=== PATIENT | male | born 1990 | race Caucasian/White ===

== ENCOUNTER 2022-10-09 07:10 | Inpatient (IN) | payer OTHER ==
[~2022-10-09] VITALS: Ht 172.7 cm; Wt 104.5 kg
[~2022-10-09 07:10] MED LIST: ATIVAN1 MG PO; LISINOPRIL10 MG PO; ONDANSETRON ODT8 MG PO
[2022-10-09] MEDS ORDERED: ATIVAN1 MG PO (08:46)
[2022-10-09] MEDS ORDERED: PRILOSEC OTC20 MG PO (08:49)
[2022-10-09] MEDS ORDERED: ONDANSETRON ODT4 MG PO (08:49)
--- NOTE | 2022-10-09 15:34 | NUR ---
PT ADMITTED TO ROOM 129 AT 1500. PT WAS ABLE TO TRANSFER SELF TO CCU BED WITH MINIMAL ASSISTANCE. PT STARTED ON LR AT 125ML/HR. ADMISSION ASSESSMENT COMPLETED BY RN. PT IS ALERT AND ORIENTED TO TIME AND PLACE. PT IS ABLE TO HOLD CONVERSATION AT THIS TIME. PT RECIEVED ONE SIP OF WATER AND TOLERATED IT OKAY, NO COMPLAINT OF NAUSEA. PT HAS SLIGHT TREMORS, A MILD HEADACHE AND MINIMAL NAUSEA COMPLAINTS. PTS CIWA WAS 9 UPON CCU ADMISSION. PT IS RESTING IN BED WITH A URINAL NEAR THE BEDSIDE, CALL LIGHT IS WITHIN REACH AND PT HAS PERSONAL CELL PHONE ON PERSON. WILL CONTINUE TO MONITOR CLOSELY.
--- NOTE | 2022-10-09 17:25 | NUR ---
Spoke with Vladislav. He states he's been "drinking alot and fell off the wagon". He moved pt [place] recently. 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 He lives in [place] with 2 steps and does not have any issues getting in or out of his home. He does not use any DME. He has concerns about bills as he has not been working. He has used [facility] in the past and is willing to work with them again. I will call in the AM and ask for Peer visit. Pt does not have a pcp, he does not care which clinic he uses, would just like an appoint in the near future. I will send his chart in the am the [facility] as they currently have openings. He would like his mom added as an emergency contact Bruna Ch [phone].
--- NOTE | 2022-10-09 17:58 | NUR ---
PHONE CALL PLACED TO DR. AKERS REGARDING NPO STATUS AND DIET HAS BEEN ADVANCED TO CLEAR LIQUIDS FOR NOW,BUT MAY ADVANCE FURTHER TOLERATED BY PATIENT. IVF CONTINUE AT 125 ML/HR. NEW IV PLACED IN LEFT HAND.
--- NOTE | 2022-10-09 18:48 | NUR ---
PATIENT CONTINUES TO REST. CIWA WAS 3 AT THE LAST CHECK. NEXT CIWA IS AT 2030. HR IN THE 110s. PT REMAINS ON IVF AT 125 ML/HR. PT ALSO ON ROOM AIR. PT WAS ABLE TO VOID TO URINAL WITHOUT DIFFICULTY, DREAD COLORED URINE.
--- NOTE | 2022-10-09 20:00 | NUR ---
Bedside report received from outgoing nurse, TETO Mann. Initial assessment performed with no critical interventions necessary. All vital signs stable with no indications of respiratory distress or pain. Patient awake and alert with no indications of hallucinations or terrible tremors. Lactated ringers infusing via PIV at 125 ml/hr. Will continue to monitor.
--- NOTE | 2022-10-09 21:12 | EKG ---
[facility] [address] [facility] [place] [address] Signed Sinus tachycardia Nonspecific T wave abnormality Abnormal ECG No previous ECGs available Confirmed by Sammie Akers MD () on 10/09/2022 9:12:34 PM Electronically Signed By: SAMMIE AKERS MD 10/09/222111 PATIENT NAME: MAGO ELIAS Electrocardiogram DATE OF : 88 PHYSICIAN: SAMMIE AKERS MD REPORT #: [id number] REPORT IS CONFIDENTIAL AND NOT TO BE RELEASED WITHOUT AUTHORIZATION
--- NOTE | 2022-10-09 22:10 | NUR ---
Ativan administered for complaints of tremors and anxiety. All vital signs stable. Will reassess.
--- NOTE | 2022-10-10 | NUR ---
Repeat assessment performed with no acute changes since previous assessment unless noted. All vital signs stable with no further complaints of tremors. No indications of respiratory distress, fever or pain. Will continue to monitor.
--- NOTE | 2022-10-10 02:00 | NUR ---
Patient resting comfortably with no indications of distress. All vital signs stable. Will continue to monitor.
--- NOTE | 2022-10-10 04:00 | NUR ---
Repeat assessment performed with no acute changes since previous assessment unless noted. All vital signs stable with no complaints or indications of respiratory distress, increased fever or pain. Patient oriented, has slight tremors and denies hallucinations. IV fluids infusing at 125 ml/hr.
--- NOTE | 2022-10-10 06:00 | NUR ---
Patient sleeping with no indications of distress. All vital signs stable.
--- NOTE | 2022-10-10 08:00 | NUR ---
Chart faxed to [facility] at the [facility] as this is the only clinic accepting pts at this time. Discussed PFM, [facility], and Physician clinic with pt. He does not want to wait until summer to establish care.
--- NOTE | 2022-10-10 08:00 | NUR ---
ASSESSMENT COMPLETED. CIWA SCORE OF 10 AT THIS TIME. PT GIVEN ORAL VALIUM (SEE EMAR). PT DENIES AUDITORY OR VISUAL HALLUCINATIONS AT THIS TIME. PT DOES NOT MAKE DIRECT EYE CONTACT WHEN RESPONDING TO QUESTIONS BUT ANSWERS ALL QUESTIONS APPROPRIATELY. HEART RATE IN THE 100-110 AT REST, UP TO 120S WITH ACTIVITY. PLAN OF CARE FOR DAY ESTABLISHED. CALL LIGHT WITHIN REACH. WILL CONTINUE TO MONITOR.
--- NOTE | 2022-10-10 08:36 | NUR ---
DR AKERS IN ROOM TO ASSESS PT. PT ASKING QUESTIONS ABOUT DISCHARGE. PLAN ESTABLISHED FOR THE DAY. DISCUSSED COURSE TREATMENT FOR ALCOHOL WITHDRAWAL, HEART RATE, AND MEDICATION ADMINISTRATION. PT VERBALIZED UNDERSTANDING OF PLAN OF CARE. CALL LIGHT WITHIN REACH. WILL CONTINUE TO MONITOR.
--- NOTE | 2022-10-10 09:00 | NUR ---
PATIENT UP TO BR, FOR VOID AND SMALL LOOSE BM, DENIES DIZZINESS OR NAUSEA. VITALS AND I&OS CHARTED. LINEN CHANGED, CLEAN GOWN PROVIDED, PATIENT DENIES WANTING A BEDBATH AT THIS TIME. PATIENT SITTING UP IN RECLINER, WARM BLANKET PROVIDED. PERSONAL ITEMS AND CALL LIGHT IN EASY REACH
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
--- NOTE | 2022-10-10 09:43 | NUR ---
[facility] WORKER IN ROOM TO TALK WITH PT AT THIS TIME.
--- NOTE | 2022-10-10 10:45 | NUR ---
Attempted to see pt x 2, sleeping. Per rn they are medicating. Will see tomorrow. They did state [facility] visited him today.
--- NOTE | 2022-10-10 12:11 | NUR ---
ASSESSMENT COMPLETED. PT HEART RATE IN THE 130S AT REST AND PT IS HYPERTENSIVE. 5 MG IV LOPRESSOR ADMINISTERED. LEFT AC IV REDRESSED. MILD LEAKING NOTED WITH FLUSHING. WILL CLOSELY MONITOR. 5 MG ORAL DIAZAPAM ADMINISTERED FOR CIWA OF 12. IV POTASSIUM PHOSPHORUS AND BANNANA BAG INFUSING. CALL LIGHT WITHIN REACH. WILL CONTINUE TO MONITOR.
--- NOTE | 2022-10-10 12:39 | EKG ---
[facility] [address] [place] [address] Signed Sinus tachycardia Otherwise normal ECG When compared with ECG of 09-OCT-2022 13:38, ST elevation now present in Anterior leads Nonspecific T wave abnormality has replaced inverted T waves in Lateral leads Confirmed by Sammie Akers MD () on 10/10/2022 12:39:23 PM Electronically Signed By: SAMMIE AKERS MD 10/10/22 1239 PATIENT NAME: MAGO ELIAS Electrocardiogram DATE OF : [birth year] PHYSICIAN: SAMMIE AKERS MD REPORT #: [id number] REPORT IS CONFIDENTIAL AND NOT TO BE RELEASED WITHOUT AUTHORIZATION
--- NOTE | 2022-10-10 13:30 | NUR ---
PT RESTING WITH EYES CLOSED. BREATHING EVEN AND UNLABORED. IV MEDICATIONS INFUSING. CALL LIGHT WITHIN REACH. WILL CONTINUE TO MONITOR.
--- NOTE | 2022-10-10 15:07 | NUR ---
PT DIAPHORETIC. ORAL TEMP NOW 98.4. GOWN CHANGED AND ASSISTED TO AND FROM BATHROOM. PT RESTING IN BED. HEART RATE IN THE 80S. BREATHING EVEN AND UNLABORED. CALL LIGHT WITHIN REACH. WILL CONTINUE TO MONITOR.
--- NOTE | 2022-10-10 16:15 | NUR ---
ASSESSMENT COMPLETED. PT HEART RATE IN THE 70S -80S AT REST. SPO2 = 96% ON ROOM AIR. CIWA LESS THAN 8 AT THIS TIME. PT STATES "I FEEL MUCH BETTER THAN THIS MORNING". PLAN OF CARE FOR EVENING ESTABLISHED. CALL LIGHT WITHIN REACH. WILL CONTINUE TO MONITOR.
--- NOTE | 2022-10-10 18:30 | NUR ---
PT ATE 30% OF DINNER AND FELL BACK ASLEEP. DENIES FURTHER NEEDS AT THIS TIME.
--- NOTE | 2022-10-10 20:00 | NUR ---
Bedside report received from outgoing nurse, TETO Lutz. Initial assessment performed with no critical interventions necessary. Lactacted ringers infusing via PIV at 125 ml/hr. Patient alert and oriented with no signs or complaints of visible tremors. All vital signs stable with no indications of respiratory distress, fever or pain. Will continue to monitor.
--- NOTE | 2022-10-10 22:00 | NUR ---
Patient sitting up in bed watching television with no complaints of pain or tremors. All vital signs stable. Comfort measures performed.
--- NOTE | 2022-10-11 00:15 | NUR ---
Repeat assessment performed with no acute change since previous assessment unless noted. All vital signs stable with no complaints or indications of respiratory distress, fever or pain. Patient does not display any signs of tremors or anxiety. Will continue to monitor.
--- NOTE | 2022-10-11 02:07 | NUR ---
Patient resting comfortably after administration of Valium 5mg PO for complaints of anxiety. All vital signs stable.
--- NOTE | 2022-10-11 04:00 | NUR ---
Repeat assessment performed with no acute changes since previous assessment unless noted. All vital signs stable with no complaints of respiratory distress, fever or pain. Patient states taht he feels better since receiving the valium. Comfort measures provided. Will continue to monitor.
--- NOTE | 2022-10-11 06:17 | NUR ---
Patient resting comfortably with no complaints of anxiety. Left hand IV dressing changed and IV flushes appropriately. Visible tremors noted but patient refused medication. All vital signs stable. Comfort measures provided.
--- NOTE | 2022-10-11 07:18 | EKG ---
[facility] [address] [facility] [place], [place] [address] Signed Normal sinus rhythm Normal ECG When compared with ECG of 09-OCT-2022 22:51, No significant change was found Confirmed by RESHMA METZGER MD ([id number]) on 10/11/2022 7:18:35 AM Electronically Signed By: RESHMA METZGER MD 10/11/22 0718 PATIENT NAME: MAGO ELIAS Electrocardiogram DATE OF : [birth year] PHYSICIAN: RESHMA METZGER MD REPORT #: [id number] REPORT IS CONFIDENTIAL AND NOT TO BE RELEASED WITHOUT AUTHORIZATION
--- NOTE | 2022-10-11 07:30 | NUR ---
REPORT RECEIVED, CARE OF PT ASSUMED AT THIS TIME.
--- NOTE | 2022-10-11 08:00 | NUR ---
ASSESSMENT COMPLETED. PT ALERT AND ORIENTED, ANSWERING ALL QUESTIOSN APPROPRAITELY. DENIES PAIN, NAUSEA, OR ANY OTHER DISCOMFORT. CIWA SCORE OF 4. PT DENIES FEELING WITHDRAWAL SYMPTOMS AND STATES HE IS "READY TO GO HOME". PLAN FOR MORNING ESTABLISHED. PT NOW EATING BREAKFAST. CALL LIGHT WITHIN REACH. WILL CONTINUE TO MONITOR.
[2022-10-11] MEDS ORDERED: LISINOPRIL10 MG PO (08:38)
[2022-10-11] MEDS ORDERED: GABAPENTIN300 MG PO (08:45)
--- NOTE | 2022-10-11 08:45 | NUR ---
DR METZGER IN ROOM TO ASSESS PT. PLAN ESTABLISHED FOR PT TO DISCHARGE THIS MORNING. ALL QUESTIONS ANSWERED. PT UNDERSTANDS PLAN FOR DISCHARGE. CALL LIGHT WITHIN REACH. WILL CONTINUE TO MONITOR.
--- NOTE | 2022-10-11 08:48 | NUR ---
PATIENT AWAKE IN BED, DR IN TO SEE PATIENT. VITALS AND I&OS CHARTED. PATIENT UP TO BR FOR VOID. LINEN CHANGED. WASHCLOTHS PROVIDED FOR PATIENT TO CLEAN HIMSELF UP IN BR. REFUSED ORAL CARE, PATIENT BACK TO BED, CALL LIGHT AND PERSONAL ITEMS CLOSE BY.
[2022-10-11] MEDS ORDERED: MULTI VITAMIN1 EACH PO (08:51)
[2022-10-11] MEDS ORDERED: MELATONIN3 MG PO (08:51)
[2022-10-11] MEDS ORDERED: CLARITIN10 MG PO ×2 (08:52→08:53)
--- NOTE | 2022-10-11 08:58 | NUR ---
MED REC COMPLETE
--- NOTE | 2022-10-11 09:03 | NUR ---
PER DR. METZGER PATIENT READY FOR DISCHARGE TO HOME. MD CHECKING ON PCP FOLLOW UP AND PHARMACY. WILL CONTACT ERIKA AT [facility] REGARDING PCP REQUEST FROM [facility]. RX FAXED TO [facility] AND HARD COPY GIVEN TO PATIENT.
--- NOTE | 2022-10-11 09:13 | NUR ---
ATTEMPTED TO CONTACT ERIKA AT [facility] FOR PCP VISIT, NO ANSWER. EMAIL SENT, WILL AWAIT FOLLOW UP.
--- NOTE | 2022-10-11 09:21 | NUR ---
PHARMACIST IN ROOM AT THIS TIME TO DISCUSS DISCHARGE MEDICATIONS.
--- NOTE | 2022-10-11 10:53 | NUR ---
CONNECTED WITH PT RN SAHARA WAS TRANSPORTING PT BY FOR DC. PT WAVED, THANKED STAFF. GAVE ENCOURAGEMENT, PT THANKED ME.
== END 2022-10-11 10:00 | disposition home or self-care (01) | DRG 897 ==
LOC: ED 07:10 → CCU 14:07
PROVIDERS: ADMIT Family Medicine; ATTEND Internal Medicine
PROC: HZ2ZZZZ Detoxification Services for Substance Abuse Treatment (ICD-10-PCS; principal; 2022-10-09)
DX: F10.239 Alcohol dependence with withdrawal, unspecified (principal); E87.20 Acidosis, unspecified; Z20.822 Contact with and (suspected) exposure to COVID-19; R94.31 Abnormal electrocardiogram [ECG] [EKG]; E86.0 Dehydration; R11.2 Nausea with vomiting, unspecified; R00.0 Tachycardia, unspecified; Z79.899 Other long term (current) drug therapy
CPT/HCPCS: 36415; 80048; 80053; 82140; 82803; 83605; 83690; 83735; 84100; 85025; 87502; 93005; 93010; 94760; C9113; C9803; J2060; J2405; J2550; J3411; J3475; J7030; J7060; J7121; U0003

== ENCOUNTER 2022-11-05 18:38 | Inpatient (IN) | payer OTHER ==
[~2022-11-05] VITALS: Ht 172.7 cm; Wt 111.0 kg
[~2022-11-05 18:38] MED LIST changes: +CLARITIN10 MG PO; +GABAPENTIN300 MG PO; +MELATONIN3 MG PO; +MULTI VITAMIN1 EACH PO; +ONDANSETRON ODT4 MG PO; +PRILOSEC OTC20 MG PO
--- OUTSIDE RECORDS SUMMARY | 2022-11-05 18:40 | XMS ---
PreManage Notification: MAGO ELIAS Security Equ[employer] Events No recent Security Events currently on file CRITERIA MET - [facility] - 2 Visits in 30 Days CARE PROVIDERS -, Pavel Pink Dentist: Supervisor Rod Placing Current Dental Clinic PHONE: [phone] Sara has no Care Guidelines for this patient. Carlos VISIT COUNT (12 MO.) 3 [facility] TOTAL 3 NOTE: Visits indicate total known visits. 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
--- NOTE | 2022-11-05 23:41 | NUR ---
5:PT ARRIVED VIA STRETCHER FROM ER, PT AROUSABLE AND ORIENTED X4. PT FOLLOWING ALL COMMANDS. PT SKIN ASSESSED, PT DROWSY, BUT ABLE TO HANDLE SECRETIONS/FLUIDS ON HIS OWN. PT C/O HIS LEGS BEING STIFF
--- NOTE | 2022-11-06 02:47 | NUR ---
PT RESTING QUIETLY IN BED EYES CLOSED RESP REGULAR AT 29/MIN, NO DISTRESS, PT IN REALXED POSITION. NO TREMORS NOTED
--- NOTE | 2022-11-06 07:33 | NUR ---
REPORT RECEIVED FROM TETO COOPER. PT RESTING ON RIGHT SIDE WITH EYES CLOSED, RESPRAITIONS EVEN AND UNLABORED. OXGYEN SATURATIONS OF 96% ON 1L O2 BY NC. SEIZURES PADS IN PLACE, BED RAILS UP. CALL LIGHT WITHIN REACH. PT ALLOWED TO REST.
--- NOTE | 2022-11-06 08:00 | NUR ---
PATIENT RESTING IN BED, EYES CLOSED. WOKE TO VOICE. VITALS CHARTED. PATIENT ABLE TO REPOSITION HIMSELF FOR COMFORT. CALL LIGHT IN EASY REACH. NO OTHER NEEDS AT THIS TIME
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
--- NOTE | 2022-11-06 09:20 | NUR ---
PATIENT SLEEPING.SPOKE TO NURSE NATHAN AND ASKED TO BE NOTIFIED WHEN PATIENT IS AWAKE SO CASE DARLING CAN AN ASSESSMENT.
--- NOTE | 2022-11-06 10:13 | NUR ---
THIS RN TO ROOM TO CHECK ON PT. PT RESTING ON LEFT SIDE WITH EYES CLOSED, PT AWAKES TO VOICE AND CONTINUES TO DENY PAIN AND NAUSEA. MILD TREMORS SEEN. CIWA SCORE OF 3. PT REPORTS HE WOULD LIKE TO CONTINUE RESTING. BED RAILS UP. CALL LIGHT WITHIN REACH. PT ALLOWED TO REST.
--- NOTE | 2022-11-06 11:01 | NUR ---
MED REC COMPLETE
--- NOTE | 2022-11-06 11:07 | NUR ---
THIS RN TO ROOM TO CHECK ON PT. PT RESTING ON RIGHT SIDE WITH EYES CLOSED. RESPIRATIONS EVEN AND UNLABORED. HEART RATE IN THE 80'S. RR OF 17 AND OXGYEN SATURATION 92-95% ON ROOM AIR. NO ADDITIONAL NEEDS AT THIS TIME. CALL LIGHT WITHIN REACH. BED RAILS UP. SEIZURE PADS IN PLACE.
--- NOTE | 2022-11-06 12:11 | NUR ---
NOON ASSESSMENT DUE. PT RESTING IN BED, CALL LIGHT ON. PT REPORTS HE IS READY FOR LUNCH. LUNCH TRAY DELIVERD. PT VOIDS 700ML CLEAR YELLOW URINE INTO URINAL. CIWA SCORE OF 7 AT THIS TIME FOR TREMORS AND MILD AGITATION AND MILD DIAPHROESIS. PT DENIES PAIN AND NASUEA. LUNG SOUNDS CLEAR. HEART RATE REGULAR WITH NORMAL SINUS RYTHEM NOTED ON THE MONITOR. PT TOELRATING ROOM AIR WITH OXGYEN SATURATIONS ABOVE 94%. OCCATIONAL COUGH NOTED, NO SPUTUM PRODUCTION SEEN. PT ALERT AND OREINTED TO ALL. WOUND TO LEFT SHOULDER UNCHNAGED, PHOTOGRAPHS TAKEN. PT TALKIGN WITH FAMILY ON THE PHONE AND WATCHING TV. NO ADDIITONAL REQUESTS OR COMPLAINTS. CALL LIGHT WITHIN REACH. BED RAILS UP.
--- NOTE | 2022-11-06 12:57 | NUR ---
PATIENT WAS ADMITTED FOR ETOH ABUSE AND POSSIBLE SEIZURE. PATIENT ADMITS TO HEAVY DRINKING. PATIENT DRINKS WHISKEY. PATIENT RECIEVED A [facility] CARD IN THE PAST AND REFUSES ONE TODAY. PATIENT LIVES A LONE IN HIS APARTMENT. PATIENT IS UNEMPLOYED AT THIS TIME. PATIENT STATES FINANCES ARE TIGHT.PATIENT HAS FRIENDS THAT ARE VERY SUPORTIVE AND ARE AVAILABLE TO HELP IF NEEDED. PATIENT WILL CONTACT [employer] ONLINE TO HELP WITH CUTTING DOWN ON HIS DRINKING. PATIENT DOES HAVE [employer] AND WILL USE THEIR TRANSPORTATION IN THE FUTURE. PATIENT HAS APPLIED FOR UNEMPLOYMENT AND IS GETTING FOOD STAMPS AT THIS TIME.
--- NOTE | 2022-11-06 13:23 | NUR ---
PT CALL LIGHT ON. REQUESTS ASSISTANCE UP TO RESTROOM. 1 PERSON ASSIST FOR LINE AND TUBE MANAGEMENT UP TO RESTROOM. PT STEADY ON FEET ALTHOUGH TREMORS CONTINUE. MILD DIAPHRESIS NOTED. PT DENIES PAIN, NAUSEA OR ANXIETY. ICE WATER REFILLED. PT VOIDS WITHOUT ISSUE. STAND BY ASSIST UP TO CHAIR. PT WATCHING TV. WARM BLANKET PROVIDED. NO ADDITIONAL REQUESTS OR COMPLAINTS. CALL LIGHT WITHIN REACH. BED RAILS UP.
--- NOTE | 2022-11-06 13:45 | NUR ---
[facility] ARRIVED FROM [facility]. GIVEN ORDERED. IV TO LEFT FORARM WNL. NO ADDITIONAL REQUESTS OR COMPLAINTS. PT TALKING WITH HIS MOTHER ON THE PHONE. REMAINS UP TO CHAIR. CALL LIGHT WITHIN REACH.
--- NOTE | 2022-11-06 14:53 | NUR ---
THIS RN TO ROOM TO CHECK ON PT. PT REMAINS UP TO CHAIR. RESTING WITH EYES CLOSED, RESPIRATIONS EVEN AND UNLABORED. OXGYEN SATUATIONS 96% ON ROOM AIR. CALL LIGHT WITHIN REACH. PT ALLOWED TO REST.
--- NOTE | 2022-11-06 15:23 | NUR ---
THIS RN TO ROOM TO CHECK ON PT. PT CONTINUES RESTING IN CHAIR WITH EYES CLOSED. VITAL SIGNS STABLE. PT ALLOW TO REST. CALL LIGHT WITHIN REACH.
--- NOTE | 2022-11-06 15:54 | NUR ---
PT READY FOR TRANSFER TO MEDICAL FLOOR. TELEMTRY PLACED. RT UPDATED. REPORT CALLED TO TETO BOYD, WHO IS ASSUMING CARE OF PT. PT UPDATED ON PLAN OF CARE AND REPORTS HE IS READY FOR TRANSFER. CIWA NOTED TO BE 7 AT THIS TIME FOR INCREASED ANXIETY/AGITATION, TREMORS AT MILD LEVEL WITH MILD DIAPHRESIS OF PALMS ALSO NOTED. SEE MAR FOR MEDICATION GIVEN. PT REMAINS UP TO CHAIR. AWAITING ROOM TO BE READY FOR TRANSFER.
--- NOTE | 2022-11-06 16:10 | NUR ---
PT TRANSFERED TO MED/SURG BY CHAIR. ALL BELONGINGS WITH PT.
--- NOTE | 2022-11-06 16:13 | NUR ---
PATIENT TRANSFER TO [facility] 115 IN RECLINER. PATIENT HANDOFF FROM NATHAN IRENE PATIENT, THIS NURSE TO RESUME CARE. CIWA 3. PATIENT ORIENTED TO NEW ROOM, CALL LIGHT WITHIN REACH. PATIENT VERBALIZES WILL CALL TO FOR STBY. ENCORUAGED PATIENT TO GET UP AND AMBULATE IN HALLS PER ORDERS. PATIENT APPEARS AGREEABLE. VS WNL. FULL BODY ASSESMENT DONE.
--- NOTE | 2022-11-06 17:07 | NUR ---
PATIENT UP AMBULATING IN HALLS, APPEARS STEADY ON FEET. STBY IN HALLWAYS, ASSESSED CIWA- PATIENT AT 3 APPEARS CALM. PLEASANTLY DISCUSSING GROWING UP NEAR [facility]. BACK TO ROOM, PATIENT SITTING UP IN RECLINER WITH CALL LIGHT WITHIN REACH. CALL TO DR. CAMP, PATIENT REQUESTED TO START TAKING HOME BP MEDICAITONS. DR. CAMP PUT ORDERS IN COMPUTER FOR HOME BP REGIME. UPDATED PATIENT ON POC.
--- NOTE | 2022-11-06 19:00 | NUR ---
SHIFT REPORT RECEIVED FROM FUNMILAYO BOYD AT BEDSIDE. pt AWAKE AND RESTING IN BED, ON RA. RR EVEN AND UNLABORED. VISIABLE TREMORS NOTED, FUNMILAYO RN TO GET PRN VALIUM-SEE EMAR. IV SITE WNL, FLUIDS INFUSING DIRECTED. NO ADDITIONAL NEEDS. CALL LIGHT IN REACH.
--- NOTE | 2022-11-06 19:21 | NUR ---
WHEN PATIENT CAME OVER TODAY FROM CCU HE DID A TOTAL OF 15 LAPS AROUND MED SURG.
--- NOTE | 2022-11-06 20:02 | NUR ---
CALL LIGHT ANSWERED, IV PUMP ALARMING. ISSUE RESOLVED. pt UP SBA TO BATHROOM, pt VERBALIZES INTEREST TO ATTEMPT TO HAVE A BM. INSTRUCTED TO USE CALL LIGHT ONCE READY TO RESTURN TO BED, pt VERBALIZED UNDERSTANDING.
--- NOTE | 2022-11-06 22:02 | NUR ---
ASSESSMENT COMPLETE, SCHEDULED IV ABX INFUSING DIRECTED ALONG WITH IV FLUIDS-SEE EMAR. IV SITE WNL, FLUSHES WELL. FIELD START TO LEFT WRIST/FOREARM DC'D, TIP INTACT. VSS, pt DENIES PAIN AND NAUSEA. VISIBLE TREMORS NOTED IN HANDS, pt REPORTS D/T REMOVAL OF IV, pt EDUCATED AND THERAPEUTIC COMMUNICATION PROVIDED. NO S/SX OF WITHDRAWL NOTED, WILL MONITOR. pt EDUCATED AND VERBALIZED UNDERSTANDING OF WITHDRAWL SYMPTOMS. NO ADDITIONAL NEEDS OR CONCERNS VERBALIZED. CALL LIGHT IN REACH.
--- NOTE | 2022-11-06 23:32 | NUR ---
rounded on pt, pt resting in bed with eyes closed. on ra, rr even and unlabored. no distress noted, call light in reach.
--- NOTE | 2022-11-07 00:29 | NUR ---
CIWA SCORE OF 5, D/T VISIBLE TREMORS AND MILD ANXIETY. NO DISTRESS NOTED. HR ON TELE UP TO 120'S TO 130'S, THIS RN INTO ROOM AND pt WAS AWAKE AND LOOKING FOR PHONE THAT HAD DROPPED BELOW BED, ASSISTED pt. pt BACK IN BED, VS REMAIN STABLE. HR RETURNED TO BASELINE. PRN VALIUM PROVIDED-SEE EMAR. IV SITE WNL, FLUIDS AND IV ABX INFUSING DIRECTED. WILL MONITOR FOR CHANGES.
--- NOTE | 2022-11-07 02:11 | NUR ---
CALL LIGHT ANSWERED, pt REPORTS IV ALARMING. ISSUE RESOLVED. NEW BAG IV FLUIDS HUNG AND INFUSING DIRECTED, IV SITE WNL. URINAL EMPTIED AND CALL LIGHT IN REACH.
--- NOTE | 2022-11-07 03:52 | NUR ---
pt RESTING IN BED, ON RA. RR EVEN AND UNLABORED, NO DISTRESS NOTED. CALL LIGHT AND PERSONAL BELONGINGS IN REACH. HR 60'S PER TELE.
--- NOTE | 2022-11-07 06:15 | NUR ---
ASSESSMENT COMPLETE, NO ACUTE CHANGES. pt DENIES PAIN AND NAUSEA. IV SITE WNL, FLUIDS AND IV ABX INFUSING DIRECTED. pt DENIES S/SX OF WITHDRAWL AT THIS TIME, WILL MONITOR. pt DECLINED SIEZURE PRECAUTIONS EARLIER IN THE SHIFT, pt INDEPENDENT IN ROOM AND WITH AMBULATION. CALL LIGHT IN REACH, NO ADDITIONAL NEEDS OR CONCERNS VERBALIZED.
--- NOTE | 2022-11-07 07:19 | NUR ---
REPORT RECEIVED FROM TETO GARIBAY. PT RESTING IN BED ON RIGHT SIDE WITH EYES CLOSED. RESPIRATIONS EVEN AND UNLABORED. BED RAILS UP. CALL LIGHT WITHIN REACH. PT ALLOWED TO REST. TELEMETRY MONITORING SHOWS HEART RATE IN THE 70'S. WITH NORMAL SINUS RYTHM.
--- NOTE | 2022-11-07 07:44 | NUR ---
EMPTIED URINAL. GOT HIM FRESH ICE WATER. PATIENT IS SLEEPING. WILL COME BACK.
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
[2022-11-07] MEDS ORDERED: AMOXICILLIN875 MG PO (08:57)
[2022-11-07] MEDS ORDERED: AZITHROMYCIN250 MG PO (08:59)
--- NOTE | 2022-11-07 09:30 | NUR ---
Pt was discussed in [address]. He states pt has had 4 visits and does not seem to want to seek treatment.
--- NOTE | 2022-11-07 09:30 | NUR ---
THIS RN TO ROOM TO CHECK ON PT. PT RESTING IN BED. MILD TREMORS CONTINUE. PT REPORTS HE IS READY TO GO HOME BUT THAT HE WILL WAIT FOR THE ABX TO FINISH. DISCHARGE INSTRUCTIONS REVIEWED WITH PT. PT VERBALIZES UNDERSTANDING OF INSTRUCTIONS, MEDICATIONS AND FOLLOW UP AND STATES HIS QUESTIONS HAVE BEEN ANSWERED. PT DENIES PAIN AND NAUSEA. NO ADDITIONAL REQUESTS OR COMPLAINTS. CALL LIGHT WITHIN REACH. BED RAILS UP. AWIAITING ABX COMPLETION FOR DISCHARGE.
--- NOTE | 2022-11-07 09:55 | NUR ---
In and spoke with Vladislav. Discussed all of our concerns he has had 2 ER visits and 2 admissions for his alcoholisms. He does recognize he is drinking too much. He states he is trying to cut back, but is drinking a 5th day of hard alcohol. He has had rehab in the past and has also worked with [facility]. He does not wish to work with them again. We discussed [facility] A[facility]. He will willing to speak with a Peer. I will contact.
--- NOTE | 2022-11-07 10:13 | NUR ---
PUMP ALARMING. IV ABX INFUSION COMPLETE. IV FLUSHED AND SALINE LOCKED. IV DC'D PER PROTOCOL, GAUZE AND COBAN APPLIED. PT DRESSES SELF, NO ASSISTANCE NEEDED. PT TRANSFERS SELF TO WHEELCHAIR, NO ADDITIONAL REQUESTS OR CONCERNS. PT WHEELED FROM MED/SURG WITH BELONGINGS.
--- NOTE | 2022-11-07 11:08 | NUR ---
RECIEVED A PHONE CALL FROM [facility] TARIQ, WHO IS A COUNSELOR FOR ALCOHOL ABUSE ISSUES. TARIQ WILL CALL MAGO TODAY. SINCE THE PATIENT LEFT BEFORE THE PHONE CALL FROM TARIQ.
== END 2022-11-07 10:12 | disposition home or self-care (01) | DRG 871 ==
LOC: ED 18:38 → CCU 22:09 → MS 11-06 14:08
PROVIDERS: ADMIT Family Medicine; ATTEND Family Medicine
PROC: HZ2ZZZZ Detoxification Services for Substance Abuse Treatment (ICD-10-PCS; principal; 2022-11-05)
PROC: 3E03329 Introduction of Other Anti-infective into Peripheral Vein, Percutaneous Approach (ICD-10-PCS; 2022-11-05)
DX: A41.9 Sepsis, unspecified organism (principal); J18.9 Pneumonia, unspecified organism; J69.0 Pneumonitis due to inhalation of food and vomit; J96.01 Acute respiratory failure with hypoxia; F10.239 Alcohol dependence with withdrawal, unspecified; I10 Essential (primary) hypertension; Z20.822 Contact with and (suspected) exposure to COVID-19; R56.9 Unspecified convulsions; E87.6 Hypokalemia; E83.42 Hypomagnesemia; Z79.899 Other long term (current) drug therapy
CPT/HCPCS: 36415; 71260; 74177; 80053; 81001; 83605; 83735; 84100; 85025; 85379; 85610; 86850; 86900; 86901; 87040; 87502; 94760; A9270; G0480; J1650; J2060; J2543; J3411; J3475; J3480; J7121; Q9967; U0003

== ENCOUNTER 2022-12-09 18:27 | Emergency (ER) | payer OTHER ==
[~2022-12-09] VITALS: Ht 172.7 cm; Wt 110.7 kg
[~2022-12-09 18:27] MED LIST changes: +AMOXICILLIN875 MG PO; +AZITHROMYCIN250 MG PO
[2022-12-09] MEDS ORDERED: ATIVAN1 MG PO (20:03)
[2022-12-09 20:29] VITALS: BP 134/81
== END 2022-12-09 20:30 | disposition home or self-care (01) ==
LOC: ED 18:27
DX: F10.10 Alcohol abuse, uncomplicated (principal); Z79.899 Other long term (current) drug therapy
CPT/HCPCS: 36415; 80053; 83690; 85025; G0480; J2060; J3411; J7030

== ENCOUNTER 2022-12-28 14:23 | Inpatient (IN) | payer OTHER ==
[~2022-12-28] VITALS: Ht 172.7 cm; Wt 99.8 kg
--- OUTSIDE RECORDS SUMMARY | 2022-12-28 14:26 | XMS ---
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 Carlos VISIT COUNT (12 MO.) 5 [facility] TOTAL 5 NOTE: Visits indicate total known visits. ED/C VISIT TRACKING (12 MO.) 12/28/2022 14:23 [facility] TYPE: Emergency COMPLAINT: - VOMITING 12/09/2022 18:27 [facility] TYPE: Emergency COMPLAINT: - SEIZURE DIAGNOSES: - Alcohol abuse, uncomplicated - Alcohol use, unspecified with withdrawal, unspecified - Other prosthetic aide (current) drug therapy 11/05/2022 18:38 [facility] TYPE: Emergency COMPLAINT: - SEIZURE 10/09/2022 07:10 [facility] TYPE: Emergency COMPLAINT: - VOMITING 08/17/2022 17:03 [facility] TYPE: Emergency COMPLAINT: - SEIZURE DIAGNOSES: - Alcohol abuse with withdrawal, unspecified - Blood alcohol level of less than 20 mg/100 ml - Encounter for immunization - Unspecified convulsions INPATIENT VISIT TRACKING (12 MO.) 11/05/2022 22:09 [facility] TYPE: Medical Surgical COMPLAINT: - ASPIRATION PNEUMONIA,ALCOHOL WITHDRAWAL DIAGNOSES: - Acute respiratory failure with hypoxia - Acute respiratory failure with hypoxia - Alcohol dependence with withdrawal, unspecified - Alcohol dependence with withdrawal, unspecified - Contact with and (suspected) exposure to COVID-19 - Contact with and (suspected) exposure to COVID-19 - Essential (primary) hypertension - Essential (primary) hypertension - Hypokalemia - Hypokalemia - Hypomagnesemia - Hypomagnesemia - Other prosthetic aide (current) drug therapy - Other fpc (current) drug therapy - Pneumonia, unspecified organism - Pneumonia, unspecified organism - Pneumonitis due to inhalation of food and vomit - Sepsis, unspecified organism - Sepsis, unspecified organism - Unspecified convulsions - Unspecified convulsions 10/09/2022 14:07 [facility] TYPE: Critical Care COMPLAINT: - ALCOHOL WITHDRAWAL DIAGNOSES: - Abnormal electrocardiogram [ECG] [EKG] - Abnormal electrocardiogram [ECG] [EKG] - Acidosis, unspecified - Acidosis, unspecified - Alcohol dependence with withdrawal, unspecified - Contact with and (suspected) exposure to COVID-19 - Contact with and (suspected) exposure to COVID-19 - Dehydration - Dehydration - Nausea with vomiting, unspecified - Nausea with vomiting, unspecified - Other prosthetic aide (current) drug therapy - Other fpc (current) drug therapy - Tachycardia, unspecified - Tachycardia, unspecified [email or web address]
[2022-12-28 20:21] VITALS: BP 172/109
[2022-12-28 22:20] VITALS: BP 149/90
[2022-12-29] VITALS (11 sets, daily range): BP systolic 131–158; BP diastolic 87–108
== END 2022-12-29 18:00 | disposition left against medical advice (07) | DRG 894 ==
LOC: ED 14:23 → CCU 19:04
PROVIDERS: ADMIT Internal Medicine; ATTEND Internal Medicine
PROC: HZ2ZZZZ Detoxification Services for Substance Abuse Treatment (ICD-10-PCS; principal; 2022-12-28)
DX: F10.239 Alcohol dependence with withdrawal, unspecified (principal); K70.10 Alcoholic hepatitis without ascites; E83.42 Hypomagnesemia
CPT/HCPCS: 36415; 80048; 80053; 83690; 83735; 85025; C9113; J1790; J2060; J2405; J3411; J3475; J3480; J3490; J7030; J7060; J7121

== ENCOUNTER 2023-03-20 01:50 | Emergency (ER) | payer OTHER ==
[~2023-03-20] VITALS: Ht 175.3 cm; Wt 108.9 kg
--- OUTSIDE RECORDS SUMMARY | ~2023-03-20 | XMS | Continuity of Care Document ---
Demographics + + + | Address | [address] | | | [place] [address] | + + + | Preferred Language | Unknown | + + + | Marital Status | Never | + + + | Congregation Affiliation | Unknown | + + + | Race | White | + + + | Ethnic Group | Not or | + + + Author + + + | Author | [facility] | + + + | Organization | [facility] | + + + | Address | [address] | | | [place] [address] | + + + | Phone | | + + + Care Team Providers + + + + | Care Straw Boss Name | Role | Phone | + + + + Unavailable | Unavailable | + + + + Unavailable | Unavailable | + + + + Unavailable | Unavailable | + + + + Unavailable | Unavailable | + + + + Unavailable | Unavailable | + + + + Unavailable | Unavailable | + + + + Unavailable | Unavailable | + + + + Unavailable | Unavailable | + + + + Allergies and Intolerances + + + + + + | date | description | facility | reaction | severity | + + + + + + | (no date) | No Known | [facility] | (no reaction) | (no severity) | | | Allergies | | | | + + + + + + Encounters No information. Functional Status No information. Immunizations + + + + | date | description | facility | + + + + | 2022-08-17 00:00 | Tdap | [facility] | + + + + | 2022-08-17 00:00 | Tdap | [facility] | + + + + | 2022-08-17 00:00 | Tdap | [facility] | + + + + | 2022-08-17 00:00 | Tdap | [facility] | + + + + | 2022-08-17 00:00 | Tdap | [facility] | + + + + | 2022-08-17 00:00 | Tdap | [facility] | + + + + Medications + + + + | date | description | facility | + + + + | 2022-08-17 00:00 | LORAZEPAM | [facility] | + + + + | 2022-12-09 00:00 | LORAZEPAM | [facility] | + + + + | 2022-10-11 00:00 | MELATONIN | [facility] | + + + + | 2022-11-07 00:00 | MELATONIN | [facility] | + + + + | 2022-12-09 00:00 | MELATONIN | [facility] | + + + + | 2022-12-29 00:00 | MELATONIN | [facility] | + + + + | 2023-02-09 00:00 | MELATONIN | [facility] | + + + + | 2023-02-19 00:00 | MELATONIN | [facility] | + + + + | 2022-10-11 00:00 | LORATADINE | [facility] | + + + + | 2022-11-07 00:00 | AMOXICILLIN | [facility] | + + + + | 2022-11-07 00:00 | AZITHROMYCIN | [facility] | + + + + | 2022-10-11 00:00 | GABAPENTIN | [facility] | + + + + | 2022-08-17 00:00 | ONDANSETRON | [facility] | + + + + | 2022-08-18 00:00 | LISINOPRIL | [facility] | + + + + | 2022-10-11 00:00 | LISINOPRIL | [facility] | + + + + | 2022-10-11 00:00 | LISINOPRIL | [facility] | + + + + | 2022-10-11 00:00 | LISINOPRIL | [facility] | + + + + | 2022-10-11 00:00 | LISINOPRIL | [facility] | + + + + | 2022-10-11 00:00 | LISINOPRIL | [facility] | + + + + | 2022-11-07 00:00 | LISINOPRIL | [facility] | + + + + | 2022-12-09 00:00 | LISINOPRIL | [facility] | + + + + | 2022-12-29 00:00 | LISINOPRIL | [facility] | + + + + | 2023-02-09 00:00 | LISINOPRIL | [facility] | + + + + | 2023-02-19 00:00 | LISINOPRIL | [facility] | + + + + | 2023-02-09 00:00 | ALBUTEROL SULFATE | [facility] | + + + + | 2023-02-19 00:00 | ALBUTEROL SULFATE | [facility] | + + + + | 2023-02-09 00:00 | CHLORDIAZEPOXIDE HCL | [facility] | + + + + | 2023-02-09 00:00 | CHLORDIAZEPOXIDE HCL | [facility] | + + + + Problems + + + + | date | description | facility | + + + + | 2022-08-17 00:00 | Alcohol withdrawal seizure | [facility] | | | | | + + + + | 2022-08-17 00:00 | Alcohol withdrawal seizure | [facility] | | | | | + + + + | 2022-08-17 00:00 | Alcohol withdrawal seizure | [facility] | | | | | + + + + | 2022-08-17 00:00 | Alcohol withdrawal seizure | [facility] | | | | | + + + + | 2022-08-17 00:00 | Alcohol withdrawal seizure | [facility] | | | | | + + + + | 2022-08-17 00:00 | Alcohol withdrawal seizure | [facility] | | | | | + + + + | 2022-08-17 17:03 | UNSPECIFIED CONVULSIONS | [facility] | + + + + | 2022-08-17 17:03 | BLOOD ALCOHOL LEVEL OF | [facility] | | | LESS THAN 20 MG/100 ML | | + + + + | 2022-08-17 17:03 | Encounter for immunization | [facility] | | | | | + + + + | 2022-10-09 00:00 | Alcohol withdrawal | [facility] | | | syndrome | | + + + + | 2022-10-09 00:00 | Alcohol withdrawal | [facility] | | | syndrome | | + + + + | 2022-10-09 00:00 | Alcohol withdrawal | [facility] | | | syndrome | | + + + + | 2022-10-09 00:00 | Alcohol withdrawal | [facility] | | | syndrome | | + + + + | 2022-10-09 00:00 | Alcohol withdrawal | [facility] | | | syndrome | | + + + + | 2022-10-09 14:07 | DEHYDRATION | [facility] | + + + + | 2022-10-09 14:07 | ACIDOSIS, UNSPECIFIED | [facility] | + + + + | 2022-10-09 14:07 | ALCOHOL DEPENDENCE WITH | [facility] | | | WITHDRAWAL, UNSPECIFIED | | + + + + | 2022-10-09 14:07 | TACHYCARDIA, UNSPECIFIED | [facility] | + + + + | 2022-10-09 14:07 | NAUSEA WITH VOMITING, | [facility] | | | UNSPECIFIED | | + + + + | 2022-10-09 14:07 | ABNORMAL ELECTROCARDIOGRAM | [facility] | | | [ECG] [EKG] | | + + + + | 2022-10-09 14:07 | OTHER RETIREMENT (CURRENT) | [facility] | | | DRUG THERAPY | | + + + + | 2022-11-05 00:00 | Alcohol abuse with | [facility] | | | withdrawal | | + + + + | 2022-11-05 00:00 | Alcohol abuse with | [facility] | | | withdrawal | | + + + + | 2022-11-05 00:00 | Alcohol abuse with | [facility] | | | withdrawal | | + + + + | 2022-11-05 00:00 | Alcohol abuse with | [facility] | | | withdrawal | | + + + + | 2022-11-05 00:00 | Aspiration pneumonia | [facility] | + + + + | 2022-11-05 00:00 | Aspiration pneumonia | [facility] | + + + + | 2022-11-05 00:00 | Aspiration pneumonia | [facility] | + + + + | 2022-11-05 00:00 | Aspiration pneumonia | [facility] | + + + + | 2022-11-05 22:09 | SEPSIS, UNSPECIFIED | [facility] | | | ORGANISM | | + + + + | 2022-11-05 22:09 | HYPOMAGNESEMIA | [facility] | + + + + | 2022-11-05 22:09 | HYPOKALEMIA | [facility] | + + + + | 2022-11-05 22:09 | ALCOHOL DEPENDENCE WITH | [facility] | | | WITHDRAWAL, UNSPECIFIED | | + + + + | 2022-11-05 22:09 | Essential (primary) | [facility] | | | hypertension | | + + + + | 2022-11-05 22:09 | PNEUMONIA, UNSPECIFIED | [facility] | | | ORGANISM | | + + + + | 2022-11-05 22:09 | PNEUMONITIS DUE TO | [facility] | | | INHALATION OF FOOD AND | | | | VOMIT | | + + + + | 2022-11-05 22:09 | ACUTE RESPIRATORY FAILURE | [facility] | | | WITH HYPOXIA | | + + + + | 2022-11-05 22:09 | UNSPECIFIED CONVULSIONS | [facility] | + + + + | 2022-11-05 22:09 | OTHER RETIREMENT (CURRENT) | [facility] | | | DRUG THERAPY | | + + + + | 2022-12-09 00:00 | Alcohol abuse | [facility] | + + + + | 2022-12-09 00:00 | Alcohol abuse | [facility] | + + + + | 2022-12-09 00:00 | Alcohol abuse | [facility] | + + + + | 2022-12-09 18:27 | ALCOHOL ABUSE, | [facility] | | | UNCOMPLICATED | | + + + + | 2022-12-09 18:27 | OTHER RETIREMENT (CURRENT) | [facility] | | | DRUG THERAPY | | + + + + | 2022-12-28 19:04 | HYPOMAGNESEMIA | [facility] | + + + + | 2022-12-28 19:04 | ALCOHOL DEPENDENCE WITH | [facility] | | | WITHDRAWAL, UNSPECIFIED | | + + + + | 2022-12-28 19:04 | ALCOHOLIC HEPATITIS | [facility] | | | WITHOUT ASCITES | | + + + + | 2023-02-08 20:25 | Essential (primary) | [facility] | | | hypertension | | + + + + | 2023-02-08 20:25 | UNSPECIFIED CONVULSIONS | [facility] | + + + + | 2023-02-08 20:25 | ABRASION OF OTHER PART OF | [facility] | | | HEAD, INITIAL ENCOUNTER | | + + + + | 2023-02-08 20:25 | UNSPECIFIED FALL, INITIAL | [facility] | | | ENCOUNTER | | + + + + | 2023-02-08 20:25 | OTHER SCRAP CRUSHER (CURRENT) | [facility] | | | DRUG TH[facility]APY | | + + + + | 2023-02-09 00:00 | Abrasion of head | [facility] | + + + + | 2023-02-09 00:00 | Abrasion of head | [facility] | + + + + | 2023-02-19 19:13 | Essential (primary) | [facility] | | | hypertension | | + + + + | 2023-02-19 19:13 | UNSPECIFIED CONVULSIONS | [facility] | + + + + | 2023-02-19 19:13 | OTHER SCRAP CRUSHER (CURRENT) | [facility] | | | DRUG THERAPY | | + + + + Procedures + + + + | date | description | facility | + + + + | 2022-10-09 00:00 | DETOXIFICATION SERVICES | [facility] | | | FOR SUBSTANCE ABUSE | | | | TREATMENT | | + + + + Results/Labs +--------+--------+ +---------+--------+---------+ | test | date | facility | value | unit | notes | +--------+--------+ +---------+--------+---------+ + + | Result panel 1 | + + + + + +-------+ + + | | 2022-08-17 | [facility] | 7.8 | (missing) | (missing) | | (unavailable | 17:25:08 [facility] | | | | + + + +-------+ + + + + | Result panel 2 | + + + + + +--------+ + + | | 2022-08-17 | [facility] | 5.09 | (missing) | (missing) | | (unavailable | 17:25:08 | [facility] | | | | + + + +--------+ + + + + | Result panel 3 | + + + + + +--------+ + + | | 2022-08-17 | [facility] | 16.2 | (missing) | (missing) | | (unavailable | 17:25:08 | [facility] | | | | + + + +--------+ + + + + | Result panel 4 | + + + + + +--------+ + + | | 2022-08-17 | [facility] | 48.5 | (missing) | (missing) | | (unavailable | 17:25:08 | [facility] | | | | + + + +--------+ + + + + | Result panel 5 | + + + + + +--------+ + + | | 2022-08-17 | [facility] | 95.3 | (missing) | (missing) | | (unavailable | 17:25:08 | [facility] | | | | + + + +--------+ + + + + | Result panel 6 | + + + + + +--------+ + + | | 2022-08-17 | [facility] | 31.9 | (missing) | (missing) | | (unavailable | 17:25:08 | [facility] | | | | + + + +--------+ + + + + | Result panel 7 | + + + + + +--------+ + + | | 2022-08-17 | [facility] | 33.4 | (missing) | (missing) | | (unavailable | 17:25:08 | [facility] | | | | + + + +--------+ + + + + | Result panel 8 | + + + + + +--------+ + + | | 2022-08-17 | [facility] | 14.4 | (missing) | (missing) | | (unavailable | 17:25:08 | [facility] | | | | + + + +--------+ + + + + | Result panel 9 | + + + + + +-------+ + + | | 2022-08-17 | [facility] | 221 | (missing) | (missing) | | (unavailable | 17:25:08 | [facility] | | | | + + + +-------+ + + + + | Result panel 10 | + + + + + +--------+ + + | | 2022-08-17 | [facility] | 74.2 | (missing) | (missing) | | (unavailable | 17:25:08 | [facility] | | | | + + + +--------+ + + + + | Result panel 11 | + + + + + +--------+ + + | | 2022-08-17 | [facility] | 18.3 | (missing) | (missing) | | (unavailable | 17:25:08 | [facility] | | | | + + + +--------+ + + + + | Result panel 12 | + + + + + +-------+ + + | | 2022-08-17 | [facility] | 6.2 | (missing) | (missing) | | (unavailable | 17:25:08 | [facility] | | | | + + + +-------+ + + + + | Result panel 13 | + + + + + +-------+ + + | | 2022-08-17 | [facility] | 0.5 | (missing) | (missing) | | (unavailable | 17:25:08 | [facility] | | | | + + + +-------+ + + + + | Result panel 14 | + + + + + +-------+ + + | | 2022-08-17 | [facility] | 0.8 | (missing) | (missing) | | (unavailable | 17:25:08 | [facility] | | | | + + + +-------+ + + + + | Result panel 15 | + + + + + +-------+---------+ + | | 2022-08-17 | [facility] | 184 | mg/dL | (missing) | | (unavailable | 17:25:08 | [facility] | | | | + + + +-------+---------+ + + + | Result panel 16 | + + + + + +-----+---------+ + | | 2022-08-17 | [facility] | 3 | mg/dL | (missing) | | (unavailable | 17:25:08 | [facility] | | | | + + + +-----+---------+ + + + | Result panel 17 | + + + + + +--------+---------+ + | | 2022-08-17 | [facility] | 1.09 | mg/dL | (missing) | | (unavailable | 17:25:08 | [facility] | | | | + + + +--------+---------+ + + + | Result panel 18 | + + + + + +------+ + + | | 2022-08-17 | [facility] | 92 | (missing) | (missing) | | (unavailable | 17:25:08 | [facility] | | | | + + + +------+ + + + + | Result panel 19 | + + + + + +--------+ + + | | 2022-08-17 | [facility] | 2.75 | (missing) | (missing) | | (unavailable | 17:25:08 | [facility] | | | | + + + +--------+ + + + + | Result panel 20 | + + + + + +-------+ + + | | 2022-08-17 | [facility] | 136 | (missing) | (missing) | | (unavailable | 17:25:08 | [facility] | | | | + + + +-------+ + + + + | Result panel 21 | + + + + + +-------+ + + | | 2022-08-17 | [facility] | 3.4 | (missing) | (missing) | | (unavailable | 17:25:08 | [facility] | | | | + + + +-------+ + + + + | Result panel 22 | + + + + + +------+ + + | | 2022-08-17 | [facility] | 95 | (missing) | (missing) | | (unavailable | 17:25:08 | [facility] | | | | + + + +------+ + + + + | Result panel 23 | + + + + + +------+ + + | | 2022-08-17 | [facility] | 21 | (missing) | (missing) | | (unavailable | 17:25:08 | [facility] | | | | + + + +------+ + + + + | Result panel 24 | + + + + + +--------+ + + | | 2022-08-17 | [facility] | 23.4 | (missing) | (missing) | | (unavailable | 17:25:08 | [facility] | | | | + + + +--------+ + + + + | Result panel 25 | + + + + + +-------+---------+ + | | 2022-08-17 | [facility] | 9.7 | mg/dL | (missing) | | (unavailable | 17:25:08 | [facility] | | | | + + + +-------+---------+ + + + | Result panel 26 | + + + + + +-------+ + + | | 2022-08-17 | [facility] | 8.1 | (missing) | (missing) | | (unavailable | 17:25:08 | [facility] | | | | + + + +-------+ + + + + | Result panel 27 | + + + + + +-------+ + + | | 2022-08-17 | [facility] | 4.1 | (missing) | (missing) | | (unavailable | 17:25:08 | [facility] | | | | + + + +-------+ + + + + | Result panel 28 | + + + + + +-------+ + + | | 2022-08-17 | [facility] | 4.0 | (missing) | (missing) | | (unavailable | 17::08 | [facility] | | | | + + + +-------+ + + + + | Result panel 29 | + + + + + +--------+ + + | | 2022-08-17 | [facility] | 1.03 | (missing) | (missing) | | (unavailable | 17:25:08 | [facility] | | | | + + + +--------+ + + + + | Result panel 30 | + + + + + +-------+ + + | | 2022-08-17 | [facility] | 1.4 | (missing) | (missing) | | (unavailable | 17:25:08 | [facility] | | | | + + + +-------+ + + + + | Result panel 31 | + + + + + +------+ + + | | 2022-08-17 | [facility] | 88 | (missing) | (missing) | | (unavailable | 17:25:08 | [facility] | | | | + + + +------+ + + + + | Result panel 32 | + + + + + +------+ + + | | 2022-08-17 | [facility] | 86 | (missing) | (missing) | | (unavailable | 17:25:08 | [facility] | | | | + + + +------+ + + + + | Result panel 33 | + + + + + +------+ + + | | 2022-08-17 | [facility] | 81 | (missing) | (missing) | | (unavailable | 17:25:08 | [facility] | | | | + + + +------+ + + + + | Result panel 34 | + + + + + +-----+ + + | | 2022-08-17 | [facility] | 3 | (missing) | (missing) | | (unavailable | 17:25:08 | [facility] | | | | + + + +-----+ + + + + | Result panel 35 | + + + + + +-------+ + + | | 2022-08-17 | [facility] | 112 | (missing) | (missing) | | (unavailable | 19:09:08 | [facility] | | | | + + + +-------+ + + + + | Result panel 36 | + + + + + +-------+ + + | | 2022-10-09 | [facility] | 107 | (missing) | (missing) | | (unavailable | 07:17:07 | [facility] | | | | + + + +-------+ + + + + | Result panel 37 | + + + + + +-------+ + + | | 2022-10-09 | [facility] | 9.3 | (missing) | (missing) | | (unavailable | 07:17:08 | [facility] | | | | + + + +-------+ + + + + | Result panel 38 | + + + + + +-------+ + + | | 2022-10-09 | [facility] | 4.8 | (missing) | (missing) | | (unavailable | 07:17:08 | [facility] | | | | + + + +-------+ + + + + | Result panel 39 | + + + + + +-------+ + + | | 2022-10-09 | [facility] | 4.5 | (missing) | (missing) | | (unavailable | 07:17:08 | [facility] | | | | + + + +-------+ + + + + | Result panel 40 | + + + + + +--------+ + + | | 2022-10-09 | [facility] | 1.07 | (missing) | (missing) | | (unavailable | 07:17:08 | [facility] | | | | + + + +--------+ + + + + | Result panel 41 | + + + + + +-------+ + + | | 2022-10-09 | [facility] | 2.1 | (missing) | (missing) | | (unavailable | 07:17:08 | [facility] | | | | + + + +-------+ + + + + | Result panel 42 | + + + + + +-------+ + + | | 2022-10-09 | [facility] | 102 | (missing) | (missing) | | (unavailable | 07:17:08 | [facility] | | | | + + + +-------+ + + + + | Result panel 43 | + + + + + +------+ + + | | 2022-10-09 | [facility] | 94 | (missing) | (missing) | | (unavailable | 07:17:08 | [facility] | | | | + + + +------+ + + + + | Result panel 44 | + + + + + +------+ + + | | 2022-10-09 | [facility] | 81 | (missing) | (missing) | | (unavailable | 07:17:08 | [facility] | | | | + + + +------+ + + + + | Result panel 45 | + + + + + +-------+ + + | | 2022-10-09 | [facility] | 107 | (missing) | (missing) | | (unavailable | 07:17:08 | [facility] | | | | + + + +-------+ + + + + | Result panel 46 | + + + + + + + + + | | 2022-10-09 | [facility] | NEGATIVE | (missing) | (missing) | | (unavailable | 13:55:08 | [facility] | | | | + + + + + + + + + | Result panel 47 | + + + + + + + + + | | 2022-10-09 | [facility] | NEGATIVE | (missing) | (missing) | | (unavailable | 13:55:08 | [facility] | | | | + + + + + + + + + | Result panel 48 | + + + + + + + + + | | 2022-10-09 | [facility] | NEGATIVE | (missing) | (missing) | | (unavailable | 13:55:08 | [facility] | | | | + + + + + + + + + | Result panel 49 | + + + + + + + + + | | 2022-10-09 | [facility] | NEGATIVE | (missing) | (missing) | | (unavailable | 13:55:08 | [facility] | | | | + + + + + + + + + | Result panel 50 | + + + + + +---------+ + + | | 2022-10-09 | [facility] | 7.372 | (missing) | (missing) | | (unavailable | 15:19:07 | [facility] | | | | + + + +---------+ + + + + | Result panel 51 | + + + + + +--------+ + + | | 2022-10-09 | [facility] | 18.0 | (missing) | (missing) | | (unavailable | 15:19:07 | [facility] | | | | + + + +--------+ + + + + | Result panel 52 | + + + + + +---------+ + + | | 2022-10-09 | [facility] | 7.372 | (missing) | (missing) | | (unavailable | 15:19:08 | [facility] | | | | + + + +---------+ + + + + | Result panel 53 | + + + + + +--------+ + + | | 2022-10-09 | [facility] | 18.0 | (missing) | (missing) | | (unavailable | 15:19:08 | [facility] | | | | + + + +--------+ + + + + | Result panel 54 | + + + + + +-------+ + + | | 2022-10-09 | [facility] | 1.3 | (missing) | (missing) | | (unavailable | 15::08 | [facility] | | | | + + + +-------+ + + + + | Result panel 55 | + + + + + +-------+ + + | | 2022-10-10 | [facility] | 7.2 | (missing) | (missing) | | (unavailable | 05:14:08 | [facility] | | | | + + + +-------+ + + + + | Result panel 56 | + + + + + +--------+ + + | | 2022-10-10 | [facility] | 4.28 | (missing) | (missing) | | (unavailable | 05:14:08 | [facility] | | | | + + + +--------+ + + + + | Result panel 57 | + + + + + +--------+ + + | | 2022-10-10 | [facility] | 13.8 | (missing) | (missing) | | (unavailable | 05:14:08 | [facility] | | | | + + + +--------+ + + + + | Result panel 58 | + + + + + +--------+ + + | | 2022-10-10 | [facility] | 40.1 | (missing) | (missing) | | (unavailable | 05:14:08 | [facility] | | | | + + + +--------+ + + + + | Result panel 59 | + + + + + +--------+ + + | | 2022-10-10 | [facility] | 93.7 | (missing) | (missing) | | (unavailable | 05:14:08 | [facility] | | | | + + + +--------+ + + + + | Result panel 60 | + + + + + +--------+ + + | | 2022-10-10 | [facility] | 32.2 | (missing) | (missing) | | (unavailable | 05:14:08 | [facility] | | | | + + + +--------+ + + + + | Result panel 61 | + + + + + +--------+ + + | | 2022-10-10 | [facility] | 34.3 | (missing) | (missing) | | (unavailable | 05:14:08 | [facility] | | | | + + + +--------+ + + + + | Result panel 62 | + + + + + +--------+ + + | | 2022-10-10 | [facility] | 14.8 | (missing) | (missing) | | (unavailable | 05:14:08 | [facility] | | | | + + + +--------+ + + + + | Result panel 63 | + + + + + +-------+ + + | | 2022-10-10 | [facility] | 111 | (missing) | (missing) | | (unavailable | 05:14:08 | [facility] | | | | + + + +-------+ + + + + | Result panel 64 | + + + + + +--------+ + + | | 2022-10-10 | [facility] | 68.2 | (missing) | (missing) | | (unavailable | 05:14:08 | [facility] | | | | + + + +--------+ + + + + | Result panel 65 | + + + + + +--------+ + + | | 2022-10-10 | [facility] | 15.5 | (missing) | (missing) | | (unavailable | 05:14:08 | [facility] | | | | + + + +--------+ + + + + | Result panel 66 | + + + + + +--------+ + + | | 2022-10-10 | [facility] | 14.6 | (missing) | (missing) | | (unavailable | 05:14:08 | [facility] | | | | + + + +--------+ + + + + | Result panel 67 | + + + + + +-------+ + + | | 2022-10-10 | [facility] | 0.7 | (missing) | (missing) | | (unavailable | 05:14:08 | [facility] | | | | + + + +-------+ + + + + | Result panel 68 | + + + + + +-------+ + + | | 2022-10-10 | [facility] | 1.0 | (missing) | (missing) | | (unavailable | 05:14:08 | [facility] | | | | + + + +-------+ + + + + | Result panel 69 | + + + + + +-------+---------+ + | | 2022-10-10 | [facility] | 119 | mg/dL | (missing) | | (unavailable | 05:14:08 | [facility] | | | | + + + +-------+---------+ + + + | Result panel 70 | + + + + + +------+---------+ + | | 2022-10-10 | [facility] | 11 | mg/dL | (missing) | | (unavailable | 05:14:08 | [facility] | | | | + + + +------+---------+ + + + | Result panel 71 | + + + + + +--------+---------+ + | | 2022-10-10 | [facility] | 1.12 | mg/dL | (missing) | | (unavailable | 05:14:08 | [facility] | | | | + + + +--------+---------+ + + + | Result panel 72 | + + + + + +------+ + + | | 2022-10-10 | [facility] | 89 | (missing) | (missing) | | (unavailable | 05:14:08 | [facility] | | | | + + + +------+ + + + + | Result panel 73 | + + + + + +--------+ + + | | 2022-10-10 | [facility] | 9.82 | (missing) | (missing) | | (unavailable | 05:14:08 | [facility] | | | | + + + +--------+ + + + + | Result panel 74 | + + + + + +-------+ + + | | 2022-10-10 | [facility] | 133 | (missing) | (missing) | | (unavailable | 05:14:08 | [facility] | | | | + + + +-------+ + + + + | Result panel 75 | + + + + + +-------+ + + | | 2022-10-10 | [facility] | 3.3 | (missing) | (missing) | | (unavailable | 05:14:08 | [facility] ) | | [facility] | | | | + + + +-------+ + + + + | Result panel 76 | + + + + + +------+ + + | | 2022-10-10 | [facility] | 96 | (missing) | (missing) | | (unavailable | 05:14:08 | [facility] | | | | + + + +------+ + + + + | Result panel 77 | + + + + + +------+ + + | | 2022-10-10 | [facility] | 27 | (missing) | (missing) | | (unavailable | 05:14:08 | [facility] | | | | + + + +------+ + + + + | Result panel 78 | + + + + + +--------+ + + | | 2022-10-10 | [facility] | 13.3 | (missing) | (missing) | | (unavailable | 05:14:08 | [facility] | | | | + + + +--------+ + + + + | Result panel 79 | + + + + + +-------+---------+ + | | 2022-10-10 | [facility] | 8.8 | mg/dL | (missing) | | (unavailable | 05:14:08 | [facility] | | | | + + + +-------+---------+ + + + | Result panel 80 | + + + + + +-------+---------+ + | | 2022-10-10 | [facility] | 1.4 | mg/dL | (missing) | | (unavailable | 05:14:08 | [facility] | | | | + + + +-------+---------+ + + + | Result panel 81 | + + + + + +-------+---------+ + | | 2022-10-10 | [facility] | 1.9 | mg/dL | (missing) | | (unavailable | 05:14:08 | [facility] | | | | + + + +-------+---------+ + + + | Result panel 82 | + + + + + +--------+ + + | | 2022-11-05 | [facility] | 14.3 | (missing) | (missing) | | (unavailable | 18:50:07 | [facility] | | | | + + + +--------+ + + + + | Result panel 83 | + + + + + +--------+ + + | | 2022-11-05 | [facility] | 1.16 | (missing) | (missing) | | (unavailable | 18:50:07 | [facility] | | | | + + + +--------+ + + + + | Result panel 84 | + + + + + +--------+ + + | | 2022-11-05 | [facility] | 0.50 | (missing) | (missing) | | (unavailable | 18:50:07 | [facility] | | | | + + + +--------+ + + + + | Result panel 85 | + + + + + +------+ + + | | 2022-11-05 | [facility] | 90 | (missing) | (missing) | | (unavailable | 18:50:07 | [facility] | | | | + + + +------+ + + + + | Result panel 86 | + + + + + +-----+ + + | | 2022-11-05 | [facility] | A | (missing) | (missing) | | (unavailable | 18:50:07 | [facility] | | | | + + + +-----+ + + + + | Result panel 87 | + + + + + + + + + | | 2022-11-05 | [facility] | NEGATIVE | (missing) | (missing) | | (unavailable | 18:50:07 | [facility] | | | | + + + + + + + + + | Result panel 88 | + + + + + + + + + | | 2022-11-05 | [facility] | NEGATIVE | (missing) | (missing) | | (unavailable | 18:50:07 | [facility] | | | | + + + + + + + + + | Result panel 89 | + + + + + + + + + | | 2022-11-05 | [facility] | BLOOD IN | (missing) | (missing) | | (unavailable | 18:50:07 | [facility] | | [facility] | | | | + + + + + + + + + | Result panel 90 | + + + + + + + + + | | 2022-11-05 | [facility] | NEGATIVE | (missing) | (missing) | | (unavailable | 19:25:07 | [facility] | | | | + + + + + + + + + | Result panel 91 | + + + + + + + + + | | 2022-11-05 | [facility] | NEGATIVE | (missing) | (missing) | | (unavailable | 19:25:07 | [facility] | | | | + + + + + + + + + | Result panel 92 | + + + + + + + + + | | 2022-11-05 | [facility] | NEGATIVE | (missing) | (missing) | | (unavailable | 19:25:07 | [facility] | | | | + + + + + + + + + | Result panel 93 | + + + + + + + + + | | 2022-11-05 | [facility] | NEGATIVE | (missing) | (missing) | | (unavailable | 19:25:07 | [facility] | | | | + + + + + + + + + | Result panel 94 | + + + + + + + + + | | 2022-11-05 | [facility] | YELLOW | (missing) | (missing) | | (unavailable | 22:40:07 | [facility] | | | | + + + + + + + + + | Result panel 95 | + + + + + +---------+ + + | | 2022-11-05 | [facility] | CLEAR | (missing) | (missing) | | (unavailable | 22:40:07 | [facility] | | | | + + + +---------+ + + + + | Result panel 96 | + + + + + + + + + | | 2022-11-05 | [facility] | NEGATIVE | (missing) | (missing) | | (unavailable | 22:40:07 | [facility] | | | | + + + + + + + + + | Result panel 97 | + + + + + + + + + | | 2022-11-05 | [facility] | NEGATIVE | (missing) | (missing) | | (unavailable | 22:40:07 | [facility] | | | | + + + + + + + + + | Result panel 98 | + + + + + + + + + | | 2022-11-05 | [facility] | NEGATIVE | (missing) | (missing) | | (unavailable | 22:40:07 | [facility] | | | | + + + + + + + + + | Result panel 99 | + + + + + +---------+ + + | | 2022-11-05 | [facility] | 1.010 | (missing) | (missing) | | (unavailable | 22:40:07 | [facility] | | | | + + + +---------+ + + + + | Result panel 100 | + + + + + + + + + | | 2022-11-05 | [facility] | TRACE-L | (missing) | (missing) | | (unavailable | 22:40:07 | [facility] | | | | + + + + + + + + + | Result panel 101 | + + + + + +-------+ + + | | 2022-11-05 | [facility] | 6.0 | (missing) | (missing) | | (unavailable | 22:40:07 | [facility] | | | | + + + +-------+ + + + + | Result panel 102 | + + + + + + + + + | | 2022-11-05 | [facility] | NEGATIVE | (missing) | (missing) | | (unavailable | 22:40:07 | [facility] | | | | + + + + + + + + + | Result panel 103 | + + + + + +-------+ + + | | 2022-11-05 | [facility] | 2.0 | (missing) | (missing) | | (unavailable | 22:40:07 | [facility] | | | | + + + +-------+ + + + + | Result panel 104 | + + + + + + + + + | | 2022-11-05 | [facility] | NEGATIVE | (missing) | (missing) | | (unavailable | 22:40:07 | [facility] | | | | + + + + + + + + + | Result panel 105 | + + + + + + + + + | | 2022-11-05 | [facility] | NEGATIVE | (missing) | (missing) | | (unavailable | 22:40:07 | [facility] | | | | + + + + + + + + + | Result panel 106 | + + + + + +-------+ + + | | 2022-11-05 | [facility] | 0-1 | (missing) | (missing) | | (unavailable | 22:40:07 | [facility] | | | | + + + +-------+ + + + + | Result panel 107 | + + + + + +---------+ + + | | 2022-11-05 | [facility] | 21-40 | (missing) | (missing) | | (unavailable | 22:40:07 | [facility] | | | | + + + +---------+ + + + + | Result panel 108 | + + + + + + + + + | | 2022-11-05 | [facility] | SQUAMOUS 1+ | (missing) | (missing) | | (unavailable | 22:40:07 | [facility] | | | | + + + + + + + + + | Result panel 109 | + + + + + + + + + | | 2022-11-05 | [facility] | NONE SEEN | (missing) | (missing) | | (unavailable | 22:40:07 | [facility] | | | | + + + + + + + + + | Result panel 110 | + + + + + +--------+ + + | | 2022-11-05 | [facility] | RARE | (missing) | (missing) | | (unavailable | 22:40:07 | [facility] | | | | + + + +--------+ + + + + | Result panel 111 | + + + + + + + + + | | 2022-11-05 | [facility] | NONE SEEN | (missing) | (missing) | | (unavailable | 22:40:07 | [facility] | | | | + + + + + + + + + | Result panel 112 | + + + + + +------+ + + | | 2022-11-05 | [facility] | No | (missing) | (missing) | | (unavailable | 22:40:07 | [facility] | | | | + + + +------+ + + + + | Result panel 113 | + + + + + + + + + | | 2022-11-05 | [facility] | NEGATIVE | (missing) | (missing) | | (unavailable | 22:40:07 | [facility] | | | | + + + + + + + + + | Result panel 114 | + + + + + + + + + | | 2022-11-05 | [facility] | NEGATIVE | (missing) | (missing) | | (unavailable | 22:40:07 | [facility] | | | | + + + + + + + + + | Result panel 115 | + + + + + + + + + | | 2022-11-05 | [facility] | NEGATIVE | (missing) | (missing) | | (unavailable | 22:40:07 | [facility] | | | | + + + + + + + + + | Result panel 116 | + + + + + + + + + | | 2022-11-05 | [facility] | POSITIVE | (missing) | (missing) | | (unavailable | 22:40:07 | [facility] | | | | + + + + + + + + + | Result panel 117 | + + + + + + + + + | | 2022-11-05 | [facility] | NEGATIVE | (missing) | (missing) | | (unavailable | 22:40:07 | [facility] | | | | + + + + + + + + + | Result panel 118 | + + + + + + + + + | | 2022-11-05 | [facility] | NEGATIVE | (missing) | (missing) | | (unavailable | 22:40:07 | [facility] | | | | + + + + + + + + + | Result panel 119 | + + + + + + + + + | | 2022-11-05 | [facility] | NEGATIVE | (missing) | (missing) | | (unavailable | 22:40:07 | [facility] | | | | + + + + + + + + + | Result panel 120 | + + + + + + + + + | | 2022-11-05 | [facility] | NEGATIVE | (missing) | (missing) | | (unavailable | 22:40:07 | [facility] | | | | + + + + + + + + + | Result panel 121 | + + + + + + + + + | | 2022-11-05 | [facility] | NEGATIVE | (missing) | (missing) | | (unavailable | 22:40:07 | [facility] | | | | + + + + + + + + + | Result panel 122 | + + + + + + + + + | | 2022-11-05 | [facility] | NEGATIVE | (missing) | (missing) | | (unavailable | 22:40:07 | [facility] | | | | + + + + + + + + + | Result panel 123 | + + + + + + + + + | | 2022-11-05 | [facility] | NEGATIVE | (missing) | (missing) | | (unavailable | 22:40:07 | [facility] | | | | + + + + + + + + + | Result panel 124 | + + + + + + + + + | | 2022-11-05 | [facility] | NEGATIVE | (missing) | (missing) | | (unavailable | 22:40:07 | [facility] | | | | + + + + + + + + + | Result panel 125 | + + + + + + + + + | | 2022-11-05 | [facility] | NEGATIVE | (missing) | (missing) | | (unavailable | 22:40:07 | [facility] | | | | + + + + + + + + + | Result panel 126 | + + + + + +-------+---------+ + | | 2022-11-06 | [facility] | 2.5 | mg/dL | (missing) | | (unavailable | 04:38:07 | [facility] | | | | + + + +-------+---------+ + + + | Result panel 127 | + + + + + +-------+---------+ + | | 2022-11-06 | [facility] | 2.2 | mg/dL | (missing) | | (unavailable | 04:38:07 | [facility] | | | | + + + +-------+---------+ + + + | Result panel 128 | + + + + + +-------+ + + | | 2022-11-06 | [facility] | 1.7 | (missing) | (missing) | | (unavailable | 04:38:07 | [facility] | | | | + + + +-------+ + + + + | Result panel 129 | + + + + + +-------+ + + | | 2022-11-07 | [facility] | 5.0 | (missing) | (missing) | | (unavailable | 04:35:07 | [facility] | | | | + + + +-------+ + + + + | Result panel 130 | + + + + + +--------+ + + | | 2022-11-07 | [facility] | 3.85 | (missing) | (missing) | | (unavailable | 04:35:07 | [facility] | | | | + + + +--------+ + + + + | Result panel 131 | + + + + + +--------+ + + | | 2022-11-07 | [facility] | 12.4 | (missing) | (missing) | | (unavailable | 04:35:07 | [facility] | | | | + + + +--------+ + + + + | Result panel 132 | + + + + + +--------+ + + | | 2022-11-07 | [facility] | 36.2 | (missing) | (missing) | | (unavailable | 04:35:07 | [facility] | | | | + + + +--------+ + + + + | Result panel 133 | + + + + + +--------+ + + | | 2022-11-07 | [facility] | 94.2 | (missing) | (missing) | | (unavailable | 04:35:07 | [facility] | | | | + + + +--------+ + + + + | Result panel 134 | + + + + + +--------+ + + | | 2022-11-07 | [facility] | 32.4 | (missing) | (missing) | | (unavailable | 04:35:07 | [facility] | | | | + + + +--------+ + + + + | Result panel 135 | + + + + + +--------+ + + | | 2022-11-07 | [facility] | 34.4 | (missing) | (missing) | | (unavailable | 04:35:07 | [facility] | | | | + + + +--------+ + + + + | Result panel 136 | + + + + + +--------+ + + | | 2022-11-07 | [facility] | 15.4 | (missing) | (missing) | | (unavailable | 04:35:07 | [facility] | | | | + + + +--------+ + + + + | Result panel 137 | + + + + + +-------+ + + | | 2022-11-07 | [facility] | 145 | (missing) | (missing) | | (unavailable | 04:35:07 | [facility] | | | | + + + +-------+ + + + + | Result panel 138 | + + + + + +--------+ + + | | 2022-11-07 | [facility] | 55.5 | (missing) | (missing) | | (unavailable | 04:35:07 | [facility] | | | | + + + +--------+ + + + + | Result panel 139 | + + + + + +--------+ + + | | 2022-11-07 | [facility] | 30.2 | (missing) | (missing) | | (unavailable | 04:35:07 | [facility] | | | | + + + +--------+ + + + + | Result panel 140 | + + + + + +-------+ + + | | 2022-11-07 | [facility] | 8.9 | (missing) | (missing) | | (unavailable | 04:35:07 | [facility] | | | | + + + +-------+ + + + + | Result panel 141 | + + + + + +-------+ + + | | 2022-11-07 | [facility] | 4.1 | (missing) | (missing) | | (unavailable | 04:35:07 | [facility] | | | | + + + +-------+ + + + + | Result panel 142 | + + + + + +-------+ + + | | 2022-11-07 | [facility] | 1.3 | (missing) | (missing) | | (unavailable | 04:35:07 | [facility] | | | | + + + +-------+ + + + + | Result panel 143 | + + + + + +------+---------+ + | | 2022-11-07 | [facility] | 85 | mg/dL | (missing) | | (unavailable | 04:35:07 | [facility] | | | | + + + +------+---------+ + + + | Result panel 144 | + + + + + +-----+---------+ + | | 2022-11-07 | [facility] | 4 | mg/dL | (missing) | | (unavailable | 04:35:07 | [facility] | | | | + + + +-----+---------+ + + + | Result panel 145 | + + + + + +--------+---------+ + | | 2022-11-07 | [facility] | 0.73 | mg/dL | (missing) | | (unavailable | 04:35:07 | [facility] | | | | + + + +--------+---------+ + + + | Result panel 146 | + + + + + +-------+ + + | | 2022-11-07 | [facility] | 123 | (missing) | (missing) | | (unavailable | 04:35:07 | [facility] | | | | + + + +-------+ + + + + | Result panel 147 | + + + + + +--------+ + + | | 2022-11-07 | [facility] | 5.47 | (missing) | (missing) | | (unavailable | 04:35:07 | [facility] | | | | + + + +--------+ + + + + | Result panel 148 | + + + + + +-------+ + + | | 2022-11-07 | [facility] | 138 | (missing) | (missing) | | (unavailable | 04:35:07 | [facility] | | | | + + + +-------+ + + + + | Result panel 149 | + + + + + +-------+ + + | | 2022-11-07 | [facility] | 2.9 | (missing) | (missing) | | (unavailable | 04:35:07 | [facility] | | | | + + + +-------+ + + + + | Result panel 150 | + + + + + +-------+ + + | | 2022-11-07 | [facility] | 101 | (missing) | (missing) | | (unavailable | 04:35:07 | [facility] | | | | + + + +-------+ + + + + | Result panel 151 | + + + + + +------+ + + | | 2022-11-07 | [facility] | 29 | (missing) | (missing) | | (unavailable | 04:35:07 | [facility] | | | | + + + +------+ + + + + | Result panel 152 | + + + + + +--------+ + + | | 2022-11-07 | [facility] | 10.9 | (missing) | (missing) | | (unavailable | 04:35:07 | [facility] | | | | + + + +--------+ + + + + | Result panel 153 | + + + + + +-------+---------+ + | | 2022-11-07 | [facility] | 8.2 | mg/dL | (missing) | | (unavailable | 04:35:07 | [facility] | | | | + + + +-------+---------+ + + + | Result panel 154 | + + + + + +-------+ + + | | 2022-11-07 | [facility] | 6.6 | (missing) | (missing) | | (unavailable | 04:35:07 | [facility] | | | | + + + +-------+ + + + + | Result panel 155 | + + + + + +-------+ + + | | 2022-11-07 | [facility] | 2.9 | (missing) | (missing) | | (unavailable | 04:35:07 | [facility] | | | | + + + +-------+ + + + + | Result panel 156 | + + + + + +-------+ + + | | 2022-11-07 | [facility] | 3.7 | (missing) | (missing) | | (unavailable | 04:35:07 | [facility] | | | | + + + +-------+ + + + + | Result panel 157 | + + + + + +--------+ + + | | 2022-11-07 | [facility] | 0.78 | (missing) | (missing) | | (unavailable | 04:35:07 | [facility] | | | | + + + +--------+ + + + + | Result panel 158 | + + + + + +-------+ + + | | 2022-11-07 | [facility] | 1.9 | (missing) | (missing) | | (unavailable | 04:35:07 | [facility] | | | | + + + +-------+ + + + + | Result panel 159 | + + + + + +------+ + + | | 2022-11-07 | [facility] | 98 | (missing) | (missing) | | (unavailable | 04:35:07 | [facility] | | | | + + + +------+ + + + + | Result panel 160 | + + + + + +------+ + + | | 2022-11-07 | [facility] | 71 | (missing) | (missing) | | (unavailable | 04:35:07 | [facility] | | | | + + + +------+ + + + + | Result panel 161 | + + + + + +------+ + + | | 2022-11-07 | [facility] | 61 | (missing) | (missing) | | (unavailable | 04:35:07 | [facility] | | | | + + + +------+ + + + + | Result panel 162 | + + + + + +-------+ + + | | 2022-12-09 | [facility] | 358 | (missing) | (missing) | | (unavailable | 19:36:07 | [facility] | | | | + + + +-------+ + + + + | Result panel 163 | + + + + + +--------+ + + | | 2022-12-09 | [facility] | 11.4 | (missing) | (missing) | | (unavailable | 19:36:07 | [facility] | | | | + + + +--------+ + + + + | Result panel 164 | + + + + + +--------+ + + | | 2022-12-09 | [facility] | 4.69 | (missing) | (missing) | | (unavailable | 19:36:07 | [facility] | | | | + + + +--------+ + + + + | Result panel 165 | + + + + + +--------+ + + | | 2022-12-09 | [facility] | 14.7 | (missing) | (missing) | | (unavailable | 19:36:07 | [facility] | | | | + + + +--------+ + + + + | Result panel 166 | + + + + + +--------+ + + | | 2022-12-09 | [facility] | 44.1 | (missing) | (missing) | | (unavailable | 19:36:07 | [facility] | | | | + + + +--------+ + + + + | Result panel 167 | + + + + + +--------+ + + | | 2022-12-09 | [facility] | 94.0 | (missing) | (missing) | | (unavailable | 19:36:07 | [facility] | | | | + + + +--------+ + + + + | Result panel 168 | + + + + + +--------+ + + | | 2022-12-09 | [facility] | 31.4 | (missing) | (missing) | | (unavailable | 19:36:07 | [facility] | | | | + + + +--------+ + + + + | Result panel 169 | + + + + + +--------+ + + | | 2022-12-09 | [facility] | 33.4 | (missing) | (missing) | | (unavailable | 19:36:07 | [facility] | | | | + + + +--------+ + + + + | Result panel 170 | + + + + + +--------+ + + | | 2022-12-09 | [facility] | 14.9 | (missing) | (missing) | | (unavailable | 19:36:07 | [facility] | | | | + + + +--------+ + + + + | Result panel 171 | + + + + + +-------+ + + | | 2022-12-09 | [facility] | 302 | (missing) | (missing) | | (unavailable | 19:36:07 | [facility] | | | | + + + +-------+ + + + + | Result panel 172 | + + + + + +--------+ + + | | 2022-12-09 | [facility] | 59.7 | (missing) | (missing) | | (unavailable | 19:36:07 | [facility] | | | | + + + +--------+ + + + + | Result panel 173 | + + + + + +--------+ + + | | 2022-12-09 | [facility] | 31.5 | (missing) | (missing) | | (unavailable | 19:36:07 | [facility] | | | | + + + +--------+ + + + + | Result panel 174 | + + + + + +-------+ + + | | 2022-12-09 | [facility] | 7.0 | (missing) | (missing) | | (unavailable | 19:36:07 | [facility] | | | | + + + +-------+ + + + + | Result panel 175 | + + + + + +-------+ + + | | 2022-12-09 | [facility] | 0.8 | (missing) | (missing) | | (unavailable | 19:36:07 | [facility] | | | | + + + +-------+ + + + + | Result panel 176 | + + + + + +-------+ + + | | 2022-12-09 | [facility] | 1.0 | (missing) | (missing) | | (unavailable | 19:36:07 | [facility] | | | | + + + +-------+ + + + + | Result panel 177 | + + + + + +-------+---------+ + | | 2022-12-09 | [facility] | 112 | mg/dL | (missing) | | (unavailable | 19:36:07 | [facility] | | | | + + + +-------+---------+ + + + | Result panel 178 | + + + + + +------+---------+ + | | 2022-12-09 | [facility] | 11 | mg/dL | (missing) | | (unavailable | 19:36:07 | [facility] | | | | + + + +------+---------+ + + + | Result panel 179 | + + + + + +--------+---------+ + | | 2022-12-09 | [facility] | 0.96 | mg/dL | (missing) | | (unavailable | 19:36:07 | [facility] | | | | + + + +--------+---------+ + + + | Result panel 180 | + + + + + +-------+ + + | | 2022-12-09 | [facility] | 107 | (missing) | (missing) | | (unavailable | 19:36:07 | [facility] | | | | + + + +-------+ + + + + | Result panel 181 | + + + + + +---------+ + + | | 2022-12-09 | [facility] | 11.45 | (missing) | (missing) | | (unavailable | 19:36:07 | [facility] | | | | + + + +---------+ + + + + | Result panel 182 | + + + + + +-------+ + + | | 2022-12-09 | [facility] | 136 | (missing) | (missing) | | (unavailable | 19:36:07 | [facility] | | | | + + + +-------+ + + + + | Result panel 183 | + + + + + +-------+ + + | | 2022-12-09 | [facility] | 3.0 | (missing) | (missing) | | (unavailable | 19:36:07 | [facility] | | | | + + + +-------+ + + + + | Result panel 184 | + + + + + +------+ + + | | 2022-12-09 | [facility] | 97 | (missing) | (missing) | | (unavailable | 19:36:07 | [facility] | | | | + + + +------+ + + + + | Result panel 185 | + + + + + +------+ + + | | 2022-12-09 | [facility] | 27 | (missing) | (missing) | | (unavailable | 19:36:07 | [facility] | | | | + + + +------+ + + + + | Result panel 186 | + + + + + +--------+ + + | | 2022-12-09 | [facility] | 15.0 | (missing) | (missing) | | (unavailable | 19:36:07 | [facility] | | | | + + + +--------+ + + + + | Result panel 187 | + + + + + +-------+---------+ + | | 2022-12-09 | [facility] | 8.6 | mg/dL | (missing) | | (unavailable | 19:36:07 | [facility] | | | | + + + +-------+---------+ + + + | Result panel 188 | + + + + + +-------+ + + | | 2022-12-09 | [facility] | 7.9 | (missing) | (missing) | | (unavailable | 19:36:07 | [facility] | | | | + + + +-------+ + + + + | Result panel 189 | + + + + + +-------+ + + | | 2022-12-09 | [facility] | 3.9 | (missing) | (missing) | | (unavailable | 19:36:07 | [facility] | | | | + + + +-------+ + + + + | Result panel 190 | + + + + + +-------+ + + | | 2022-12-09 | [facility] | 4.0 | (missing) | (missing) | | (unavailable | 19:36:07 | [facility] | | | | + + + +-------+ + + + + | Result panel 191 | + + + + + +--------+ + + | | 2022-12-09 | [facility] | 0.98 | (missing) | (missing) | | (unavailable | 19:36:07 | [facility] | | | | + + + +--------+ + + + + | Result panel 192 | + + + + + +-------+ + + | | 2022-12-09 | [facility] | 1.3 | (missing) | (missing) | | (unavailable | 19:36:07 | [facility] | | | | + + + +-------+ + + + + | Result panel 193 | + + + + + +------+ + + | | 2022-12-09 | [facility] | 72 | (missing) | (missing) | | (unavailable | 19:36:07 | [facility] | | | | + + + +------+ + + + + | Result panel 194 | + + + + + +------+ + + | | 2022-12-09 | [facility] | 82 | (missing) | (missing) | | (unavailable | 19:36:07 | [facility] | | | | + + + +------+ + + + + | Result panel 195 | + + + + + +------+ + + | | 2022-12-09 | [facility] | 82 | (missing) | (missing) | | (unavailable | 19:36:07 | [facility] | | | | + + + +------+ + + + + | Result panel 196 | + + + + + +------+ + + | | 2022-12-09 | [facility] | 82 | (missing) | (missing) | | (unavailable | 19:36:07 | [facility] | | | | + + + +------+ + + + + | Result panel 197 | + + + + + +-------+ + + | | 2022-12-09 | [facility] | 358 | (missing) | (missing) | | (unavailable | 19:36:07 | [facility] | | | | + + + +-------+ + + + + | Result panel 198 | + + + + + +-------+ + + | | 2022-12-28 | [facility] | 9.5 | (missing) | (missing) | | (unavailable | 14:36:07 | [facility] | | | | + + + +-------+ + + + + | Result panel 199 | + + + + + +-------+ + + | | 2022-12-28 | [facility] | 5.0 | (missing) | (missing) | | (unavailable | 14:36:07 | [facility] | | | | + + + +-------+ + + + + | Result panel 200 | + + + + + +-------+ + + | | 2022-12-28 | [facility] | 4.5 | (missing) | (missing) | | (unavailable | 14:36:07 | [facility] | | | | + + + +-------+ + + + + | Result panel 201 | + + + + + +--------+ + + | | 2022-12-28 | [facility] | 1.11 | (missing) | (missing) | | (unavailable | 14:36:07 | [facility] | | | | + + + +--------+ + + + + | Result panel 202 | + + + + + +-------+ + + | | 2022-12-28 | [facility] | 2.0 | (missing) | (missing) | | (unavailable | 14:36:07 | [facility] | | | | + + + +-------+ + + + + | Result panel 203 | + + + + + +-------+ + + | | 2022-12-28 | [facility] | 174 | (missing) | (missing) | | (unavailable | 14:36:07 | [facility] | | | | + + + +-------+ + + + + | Result panel 204 | + + + + + +-------+ + + | | 2022-12-28 | [facility] | 262 | (missing) | (missing) | | (unavailable | 14:36:07 | [facility] | | | | + + + +-------+ + + + + | Result panel 205 | + + + + + +------+ + + | | 2022-12-28 | [facility] | 87 | (missing) | (missing) | | (unavailable | 14:36:07 | [facility] | | | | + + + +------+ + + + + | Result panel 206 | + + + + + +------+ + + | | 2022-12-28 | [facility] | 99 | (missing) | (missing) | | (unavailable | 14:36:07 | [facility] | | | | + + + +------+ + + + + | Result panel 207 | + + + + + +-------+---------+ + | | 2022-12-29 | [facility] | 8.7 | mg/dL | (missing) | | (unavailable | 05:23:07 | [facility] | | | | + + + +-------+---------+ + + + | Result panel 208 | + + + + + +-------+---------+ + | | 2022-12-29 | [facility] | 1.9 | mg/dL | (missing) | | (unavailable | 05:23:07 | [facility] | | | | + + + +-------+---------+ + + + | Result panel 209 | + + + + + +-------+ + + | | 2022-12-29 | [facility] | 8.6 | (missing) | (missing) | | (unavailable | 05:23:07 | [facility] | | | | + + + +-------+ + + + + | Result panel 210 | + + + + + +--------+ + + | | 2022-12-29 | [facility] | 4.21 | (missing) | (missing) | | (unavailable | 05:23:07 | [facility] | | | | + + + +--------+ + + + + | Result panel 211 | + + + + + +--------+ + + | | 2022-12-29 | [facility] | 13.6 | (missing) | (missing) | | (unavailable | 05:23:07 | [facility] | | | | + + + +--------+ + + + + | Result panel 212 | + + + + + +--------+ + + | | 2022-12-29 | [facility] | 39.1 | (missing) | (missing) | | (unavailable | 05:23:07 | [facility] | | | | + + + +--------+ + + + + | Result panel 213 | + + + + + +--------+ + + | | 2022-12-29 | [facility] | 92.8 | (missing) | (missing) | | (unavailable | 05:23:07 | [facility] | | | | + + + +--------+ + + + + | Result panel 214 | + + + + + +--------+ + + | | 2022-12-29 | [facility] | 32.2 | (missing) | (missing) | | (unavailable | 05:23:07 | [facility] | | | | + + + +--------+ + + + + | Result panel 215 | + + + + + +--------+ + + | | 2022-12-29 | [facility] | 34.7 | (missing) | (missing) | | (unavailable | 05:23:07 | [facility] | | | | + + + +--------+ + + + + | Result panel 216 | + + + + + +--------+ + + | | 2022-12-29 | [facility] | 14.8 | (missing) | (missing) | | (unavailable | 05:23:07 | [facility] | | | | + + + +--------+ + + + + | Result panel 217 | + + + + + +-------+ + + | | 2022-12-29 | [facility] | 212 | (missing) | (missing) | | (unavailable | 05:23:07 | [facility] | | | | + + + +-------+ + + + + | Result panel 218 | + + + + + +--------+ + + | | 2022-12-29 | [facility] | 69.3 | (missing) | (missing) | | (unavailable | 05:23:07 | [facility] | | | | + + + +--------+ + + + + | Result panel 219 | + + + + + +--------+ + + | | 2022-12-29 | [facility] | 21.8 | (missing) | (missing) | | (unavailable | 05:23:07 | [facility] | | | | + + + +--------+ + + + + | Result panel 220 | + + + + + +-------+ + + | | 2022-12-29 | [facility] | 7.5 | (missing) | (missing) | | (unavailable | 05:23:07 | [facility] | | | | + + + +-------+ + + + + | Result panel 221 | + + + + + +-------+ + + | | 2022-12-29 | [facility] | 0.4 | (missing) | (missing) | | (unavailable | 05:23:07 | [facility] | | | | + + + +-------+ + + + + | Result panel 222 | + + + + + +-------+ + + | | 2022-12-29 | [facility] | 1.0 | (missing) | (missing) | | (unavailable | 05:23:07 | [facility] | | | | + + + +-------+ + + + + | Result panel 223 | + + + + + +-------+---------+ + | | 2022-12-29 | [facility] | 115 | mg/dL | (missing) | | (unavailable | 05::07 | [facility] | | | | + + + +-------+---------+ + + + | Result panel 224 | + + + + + +------+---------+ + | | 2022-12-29 | [facility] | 10 | mg/dL | (missing) | | (unavailable | 05:23:07 | [facility] | | | | + + + +------+---------+ + + + | Result panel 225 | + + + + + +--------+---------+ + | | 2022-12-29 | [facility] | 0.96 | mg/dL | (missing) | | (unavailable | | [facility] | | | | + + + +--------+---------+ + + + | Result panel 226 | + + + + + +-------+ + + | | 2022-12-29 | [facility] | 107 | (missing) | (missing) | | (unavailable | 05:: | [facility] | | | | + + + +-------+ + + + + | Result panel 227 | + + + + + +---------+ + + | | 2022-12-29 | [facility] | 10.41 | (missing) | (missing) | | (unavailable | 05:23:07 | [facility] | | | | + + + +---------+ + + + + | Result panel 228 | + + + + + +-------+ + + | | 2022-12-29 | [facility] | 135 | (missing) | (missing) | | (unavailable | 05:23:07 | [facility] | | | | + + + +-------+ + + + + | Result panel 229 | + + + + + +-------+ + + | | 2022-12-29 | [facility] | 3.4 | (missing) | (missing) | | (unavailable | 05:23:07 | [facility] | | | | + + + +-------+ + + + + | Result panel 230 | + + + + + +------+ + + | | 2022-12-29 | [facility] | 96 | (missing) | (missing) | | (unavailable | 05:23:07 | [facility] | | | | + + + +------+ + + + + | Result panel 231 | + + + + + +------+ + + | | 2022-12-29 | [facility] | 26 | (missing) | (missing) | | (unavailable | 05:23:07 | [facility] | | | | + + + +------+ + + + + | Result panel 232 | + + + + + +--------+ + + | | 2022-12-29 | [facility] | 16.4 | (missing) | (missing) | | (unavailable | 05:23:07 | [facility] | | | | + + + +--------+ + + + + | Result panel 233 | + + + + + + + + + | | 2022-12-29 | [facility] | NEGATIVE | (missing) | (missing) | | (unavailable | 11:00:07 | [facility] | | | | + + + + + + + + + | Result panel 234 | + + + + + + + + + | | 2022-12-29 | [facility] | NEGATIVE | (missing) | (missing) | | (unavailable | 11::07 | [facility] | | | | + + + + + + + + + | Result panel 235 | + + + + + + + + + | | 2022-12-29 | [facility] | NEGATIVE | (missing) | (missing) | | (unavailable | 11::07 | [facility] | | | | + + + + + + + + + | Result panel 236 | + + + + + + + + + | | 2022-12-29 | [facility] | POSITIVE | (missing) | (missing) | | (unavailable | 11:00:07 | [facility] | | | | + + + + + + + + + | Result panel 237 | + + + + + + + + + | | 2022-12-29 | [facility] | NEGATIVE | (missing) | (missing) | | (unavailable | 11:00:07 | [facility] | | | | + + + + + + + + + | Result panel 238 | + + + + + + + + + | | 2022-12-29 | [facility] | NEGATIVE | (missing) | (missing) | | (unavailable | 11:00:07 | [facility] | | | | + + + + + + + + + | Result panel 239 | + + + + + + + + + | | 2022-12-29 | [facility] | NEGATIVE | (missing) | (missing) | | (unavailable | 11:00:07 | [facility] | | | | + + + + + + + + + | Result panel 240 | + + + + + + + + + | | 2022-12-29 | [facility] | NEGATIVE | (missing) | (missing) | | (unavailable | 11:00:07 | [facility] | | | | + + + + + + + + + | Result panel 241 | + + + + + + + + + | | 2022-12-29 | [facility] | NEGATIVE | (missing) | (missing) | | (unavailable | 11:00:07 | [facility] | | | | + + + + + + + + + | Result panel 242 | + + + + + + + + + | | 2022-12-29 | [facility] | NEGATIVE | (missing) | (missing) | | (unavailable | 11:00:07 | [facility] | | | | + + + + + + + + + | Result panel 243 | + + + + + + + + + | | 2022-12-29 | [facility] | NEGATIVE | (missing) | (missing) | | (unavailable | 11:00:07 | [facility] | | | | + + + + + + + + + | Result panel 244 | + + + + + + + + + | | 2022-12-29 | [facility] | NEGATIVE | (missing) | (missing) | | (unavailable | 11:00:07 | [facility] | | | | + + + + + + + + + | Result panel 245 | + + + + + + + + + | | 2022-12-29 | [facility] | NEGATIVE | (missing) | (missing) | | (unavailable | 11:00:07 | [facility] | | | | + + + + + + + + + | Result panel 246 | + + + + + +-------+---------+ + | | 2023-02-08 | [facility] | 1.7 | mg/dL | (missing) | | (unavailable | 20:30:07 | [facility] | | | | + + + +-------+---------+ + + + | Result panel 247 | + + + + + +-------+ + + | | 2023-02-08 | [facility] | 126 | (missing) | (missing) | | (unavailable | 20:30:07 | [facility] | | | | + + + +-------+ + + + + | Result panel 248 | + + + + + +-------+ + + | | 2023-02-08 | [facility] | 6.0 | (missing) | (missing) | | (unavailable | 20:30:07 | [facility] | | | | + + + +-------+ + + + + | Result panel 249 | + + + + + +--------+ + + | | 2023-02-08 | [facility] | 4.60 | (missing) | (missing) | | (unavailable | 20:30:07 | [facility] | | | | + + + +--------+ + + + + | Result panel 250 | + + + + + +--------+ + + | | 2023-02-08 | [facility] | 14.8 | (missing) | (missing) | | (unavailable | 20:30:07 | [facility] | | | | + + + +--------+ + + + + | Result panel 251 | + + + + + +--------+ + + | | 2023-02-08 | [facility] | 44.3 | (missing) | (missing) | | (unavailable | 20:30:07 | [facility] | | | | + + + +--------+ + + + + | Result panel 252 | + + + + + +--------+ + + | | 2023-02-08 | [facility] | 96.3 | (missing) | (missing) | | (unavailable | 20:30:07 | [facility] | | | | + + + +--------+ + + + + | Result panel 253 | + + + + + +--------+ + + | | 2023-02-08 | [facility] | 32.3 | (missing) | (missing) | | (unavailable | 20:30:07 | [facility] | | | | + + + +--------+ + + + + | Result panel 254 | + + + + + +--------+ + + | | 2023-02-08 | [facility] | 33.5 | (missing) | (missing) | | (unavailable | 20:30:07 | [facility] | | | | + + + +--------+ + + + + | Result panel 255 | + + + + + +--------+ + + | | 2023-02-08 | [facility] | 15.5 | (missing) | (missing) | | (unavailable | 20:30:07 | [facility] | | | | + + + +--------+ + + + + | Result panel 256 | + + + + + +-------+ + + | | 2023-02-08 | [facility] | 168 | (missing) | (missing) | | (unavailable | 20:30:07 | [facility] | | | | + + + +-------+ + + + + | Result panel 257 | + + + + + +--------+ + + | | 2023-02-08 | [facility] | 33.9 | (missing) | (missing) | | (unavailable | 20:30:07 | [facility] | | | | + + + +--------+ + + + + | Result panel 258 | + + + + + +--------+ + + | | 2023-02-08 | [facility] | 48.3 | (missing) | (missing) | | (unavailable | 20:30:07 | [facility] | | | | + + + +--------+ + + + + | Result panel 259 | + + + + + +--------+ + + | | 2023-02-08 | [facility] | 13.0 | (missing) | (missing) | | (unavailable | 20:30:07 | [facility] | | | | + + + +--------+ + + + + | Result panel 260 | + + + + + +-------+ + + | | 2023-02-08 | [facility] | 1.9 | (missing) | (missing) | | (unavailable | 20:30:07 | [facility] | | | | + + + +-------+ + + + + | Result panel 261 | + + + + + +-------+ + + | | 2023-02-08 | [facility] | 2.9 | (missing) | (missing) | | (unavailable | 20:30:07 | [facility] | | | | + + + +-------+ + + + + | Result panel 262 | + + + + + +-------+---------+ + | | 2023-02-08 | [facility] | 153 | mg/dL | (missing) | | (unavailable | 20:30:07 | [facility] | | | | + + + +-------+---------+ + + + | Result panel 263 | + + + + + +-----+---------+ + | | 2023-02-08 | [facility] | 7 | mg/dL | (missing) | | (unavailable | 20:30:07 | [facility] | | | | + + + +-----+---------+ + + + | Result panel 264 | + + + + + +--------+---------+ + | | 2023-02-08 | [facility] | 1.07 | mg/dL | (missing) | | (unavailable | 20:30:07 | [facility] | | | | + + + +--------+---------+ + + + | Result panel 265 | + + + + + +------+ + + | | 2023-02-08 | [facility] | 94 | (missing) | (missing) | | (unavailable | 20:30:07 | [facility] | | | | + + + +------+ + + + + | Result panel 266 | + + + + + +--------+ + + | | 2023-02-08 | [facility] | 6.54 | (missing) | (missing) | | (unavailable | 20:30:07 | [facility] | | | | + + + +--------+ + + + + | Result panel 267 | + + + + + +-------+ + + | | 2023-02-08 | [facility] | 136 | (missing) | (missing) | | (unavailable | 20:30:07 | [facility] | | | | + + + +-------+ + + + + | Result panel 268 | + + + + + +-------+ + + | | 2023-02-08 | [facility] | 3.6 | (missing) | (missing) | | (unavailable | 20:30:07 | [facility] | | | | + + + +-------+ + + + + | Result panel 269 | + + + + + +------+ + + | | 2023-02-08 | [facility] | 97 | (missing) | (missing) | | (unavailable | 20:30:07 | [facility] | | | | + + + +------+ + + + + | Result panel 270 | + + + + + +------+ + + | | 2023-02-08 | [facility] | 18 | (missing) | (missing) | | (unavailable | 20:30:07 | [facility] | | | | + + + +------+ + + + + | Result panel 271 | + + + + + +--------+ + + | | 2023-02-08 | [facility] | 24.6 | (missing) | (missing) | | (unavailable | 20:30:07 | [facility] | | | | + + + +--------+ + + + + | Result panel 272 | + + + + + +-------+---------+ + | | 2023-02-08 | [facility] | 9.1 | mg/dL | (missing) | | (unavailable | 20:30:07 | [facility] | | | | + + + +-------+---------+ + + + | Result panel 273 | + + + + + +-------+---------+ + | | 2023-02-08 | [facility] | 1.7 | mg/dL | (missing) | | (unavailable | 20:30:07 | [facility] | | | | + + + +-------+---------+ + + + | Result panel 274 | + + + + + +-------+ + + | | 2023-02-08 | [facility] | 8.0 | (missing) | (missing) | | (unavailable | 20:30:07 | [facility] | | | | + + + +-------+ + + + + | Result panel 275 | + + + + + +-------+ + + | | 2023-02-08 | [facility] | 4.1 | (missing) | (missing) | | (unavailable | 20:30:07 | [facility] | | | | + + + +-------+ + + + + | Result panel 276 | + + + + + +-------+ + + | | 2023-02-08 | [facility] | 3.9 | (missing) | (missing) | | (unavailable | 20:30:07 | [facility] | | | | + + + +-------+ + + + + | Result panel 277 | + + + + + +--------+ + + | | 2023-02-08 | [facility] | 1.05 | (missing) | (missing) | | (unavailable | 20:30:07 | [facility] | | | | + + + +--------+ + + + + | Result panel 278 | + + + + + +-------+ + + | | 2023-02-08 | [facility] | 2.6 | (missing) | (missing) | | (unavailable | 20:30:07 | [facility] | | | | + + + +-------+ + + + + | Result panel 279 | + + + + + +-------+ + + | | 2023-02-08 | [facility] | 218 | (missing) | (missing) | | (unavailable | 20:30:07 | [facility] | | | | + + + +-------+ + + + + | Result panel 280 | + + + + + +-------+ + + | | 2023-02-08 | [facility] | 145 | (missing) | (missing) | | (unavailable | 20:30:07 | [facility] | | | | + + + +-------+ + + + + | Result panel 281 | + + + + + +------+ + + | | 2023-02-08 | [facility] | 76 | (missing) | (missing) | | (unavailable | 20:30:07 | [facility] | | | | + + + +------+ + + + + | Result panel 282 | + + + + + +-------+ + + | | 2023-02-08 | [facility] | 126 | (missing) | (missing) | | (unavailable | 20:30:07 | [facility] | | | | + + + +-------+ + + + + | Result panel 283 | + + + + + +-------+ + + | | 2023-02-08 | [facility] | 157 | (missing) | (missing) | | (unavailable | 20:47:07 | [facility] | | | | + + + +-------+ + + + + | Result panel 284 | + + + + + +-------+ + + | | 2023-02-08 | [facility] | 157 | (missing) | (missing) | | (unavailable | 20:47:07 | [facility] | | | | + + + +-------+ + + + + | Result panel 285 | + + + + + +--------+ + + | | 2023-02-19 | [facility] | 33.3 | (missing) | (missing) | | (unavailable | 19:25:07 [facility] | | | | + + + +--------+ + + + + | Result panel 286 | + + + + + +--------+ + + | | 2023-02-19 | [facility] | 15.2 | (missing) | (missing) | | (unavailable | 19:25:07 | [facility] | | | | + + + +--------+ + + + + | Result panel 287 | + + + + + +-------+ + + | | 2023-02-19 | [facility] | 218 | (missing) | (missing) | | (unavailable | 19:25:07 | [facility] | | | | + + + +-------+ + + + + | Result panel 288 | + + + + + +--------+ + + | | 2023-02-19 | [facility] | 61.9 | (missing) | (missing) | | (unavailable | 19:25:07 | [facility] | | | | + + + +--------+ + + + + | Result panel 289 | + + + + + +--------+ + + | | 2023-02-19 | [facility] | 22.3 | (missing) | (missing) | | (unavailable | 19:25:07 [facility] | | | | + + + +--------+ + + + + | Result panel 290 | + + + + + +--------+ + + | | 2023-02-19 | [facility] | 11.8 | (missing) | (missing) | | (unavailable | 19:25:07 [facility] | | | | + + + +--------+ + + + + | Result panel 291 | + + + + + +-------+ + + | | 2023-02-19 | [facility] | 2.6 | (missing) | (missing) | | (unavailable | 19:25:07 | [facility] | | | | + + + +-------+ + + + + | Result panel 292 | + + + + + +-------+ + + | | 2023-02-19 | [facility] | 1.4 | (missing) | (missing) | | (unavailable | 19:25:07 [facility] | | | | + + + +-------+ + + + + | Result panel 293 | + + + + + +--------+ + + | | 2023-02-19 | [facility] | 14.2 | (missing) | (missing) | | (unavailable | 19:25:07 | [facility] | | | | + + + +--------+ + + + + | Result panel 294 | + + + + + +--------+ + + | | 2023-02-19 | [facility] | 1.15 | (missing) | (missing) | | (unavailable | 19:25:07 | [facility] | | | | + + + +--------+ + + + + | Result panel 295 | + + + + + +-------+---------+ + | | 2023-02-19 | [facility] | 143 | mg/dL | (missing) | | (unavailable | 19:25:07 | [facility] | | | | + + + +-------+---------+ + + + | Result panel 296 | + + + + + +-----+---------+ + | | 2023-02-19 | [facility] | 9 | mg/dL | (missing) | | (unavailable | 19:25:07 | [facility] | | | | + + + +-----+---------+ + + + | Result panel 297 | + + + + + +--------+---------+ + | | 2023-02-19 | [facility] | 0.86 | mg/dL | (missing) | | (unavailable | 19:25:07 | [facility] | | | | + + + +--------+---------+ + + + | Result panel 298 | + + + + + +-------+ + + | | 2023-02-19 | [facility] | 117 | (missing) | (missing) | | (unavailable | 19:25:07 [facility] | | | | + + + +-------+ + + + + | Result panel 299 | + + + + + +---------+ + + | | 2023-02-19 | [facility] | 10.46 | (missing) | (missing) | | (unavailable | 19:25:07 | [facility] | | | | + + + +---------+ + + + + | Result panel 300 | + + + + + +-------+ + + | | 2023-02-19 | [facility] | 139 | (missing) | (missing) | | (unavailable | 19::07 | [facility] | | | | + + + +-------+ + + + + | Result panel 301 | + + + + + +-------+ + + | | 2023-02-19 | [facility] | 3.6 | (missing) | (missing) | | (unavailable | 19:25:07 | [facility] | | | | + + + +-------+ + + + + | Result panel 302 | + + + + + +-------+ + + | | 2023-02-19 | [facility] | 101 | (missing) | (missing) | | (unavailable | 19:25:07 | [facility] | | | | + + + +-------+ + + + + | Result panel 303 | + + + + + +------+ + + | | 2023-02-19 | [facility] | 21 | (missing) | (missing) | | (unavailable | ::07 | [facility] | | | | + + + +------+ + + + + | Result panel 304 | + + + + + +--------+ + + | | 2023-02-19 | [facility] | 20.6 | (missing) | (missing) | | (unavailable | 19:25:07 | [facility] | | | | + + + +--------+ + + + + | Result panel 305 | + + + + + +-------+---------+ + | | 2023-02-19 | [facility] | 8.5 | mg/dL | (missing) | | (unavailable | 19:25:07 | [facility] | | | | + + + +-------+---------+ + + + | Result panel 306 | + + + + + +-------+ + + | | 2023-02-19 | [facility] | 8.0 | (missing) | (missing) | | (unavailable | 19:25:07 | [facility] | | | | + + + +-------+ + + + + | Result panel 307 | + + + + + +-------+ + + | | 2023-02-19 | [facility] | 4.0 | (missing) | (missing) | | (unavailable | 19:25:07 | [facility] | | | | + + + +-------+ + + + + | Result panel 308 | + + + + + +-------+ + + | | 2023-02-19 | [facility] | 4.0 | (missing) | (missing) | | (unavailable | 19:25:07 | [facility] | | | | + + + +-------+ + + + + | Result panel 309 | + + + + + +--------+ + + | | 2023-02-19 | [facility] | 1.00 | (missing) | (missing) | | (unavailable | 19:25:07 | [facility] | | | | + + + +--------+ + + + + | Result panel 310 | + + + + + +-------+ + + | | 2023-02-19 | [facility] | 1.2 | (missing) | (missing) | | (unavailable | 19:25:07 | [facility] | | | | + + + +-------+ + + + + | Result panel 311 | + + + + + +-------+ + + | | 2023-02-19 | [facility] | 105 | (missing) | (missing) | | (unavailable | 19:25:07 | [facility] | | | | + + + +-------+ + + + + | Result panel 312 | + + + + + +------+ + + | | 2023-02-19 | [facility] | 96 | (missing) | (missing) | | (unavailable | 19:25:07 | [facility] | | | | + + + +------+ + + + + | Result panel 313 | + + + + + +------+ + + | | 2023-02-19 | [facility] | 73 | (missing) | (missing) | | (unavailable | 19:25:07 | [facility] | | | | + + + +------+ + + + + | Result panel 314 | + + + + + +-------+ + + | | 2023-02-19 | [facility] | 5.4 | (missing) | (missing) | | (unavailable | 19:25:07 | [facility] | | | | + + + +-------+ + + + + | Result panel 315 | + + + + + +--------+ + + | | 2023-02-19 | [facility] | 4.52 | (missing) | (missing) | | (unavailable | 19:25:07 | [facility] | | | | + + + +--------+ + + + + | Result panel 316 | + + + + + +--------+ + + | | 2023-02-19 | [facility] | 14.6 | (missing) | (missing) | | (unavailable | 19:25:07 | [facility] | | | | + + + +--------+ + + + + | Result panel 317 | + + + + + +--------+ + + | | 2023-02-19 | [facility] | 43.7 | (missing) | (missing) | | (unavailable | 19:25:07 | [facility] | | | | + + + +--------+ + + + + | Result panel 318 | + + + + + +--------+ + + | | 2023-02-19 | [facility] | 96.7 | (missing) | (missing) | | (unavailable | 19:25:07 | [facility] | | | | + + + +--------+ + + + + | Result panel 319 | + + + + + +--------+ + + | | 2023-02-19 | [facility] | 32.2 | (missing) | (missing) | | (unavailable | 19:25:07 | [facility] | | | | + + + +--------+ + + + + | Result panel [address] | + + + + + +--------+ + + | | 2023-02-19 | [facility] | 32.0 | (missing) | (missing) | | (unavailable | 19:54:07 | [facility] ) | [facility] | | | | + + + +--------+ + + Social History + + + + | date | description | facility | + + + + | 2022-08-18 00:00 | Unknown if ever smoked | [facility] | + + + + | 2022-10-11 00:00 | Unknown if ever smoked | [facility] | + + + + | 2022-11-07 00:00 | Unknown if ever smoked | [facility] | + + + + | 2022-12-09 00:00 | Unknown if ever smoked | [facility] | + + + + | 2022-12-29 00:00 | Unknown if ever smoked | [facility] | + + + + | 2023-02-09 00:00 | Unknown if ever smoked | [facility] | + + + + | 2023-02-19 00:00 | Unknown if ever smoked | [facility] | + + + + Vital Signs + + + +---------+ | date | measurement | value | units | + + + +---------+ | 2022-08-17 00:00 | BMI | 35.0 | kg/m2 | + + + +---------+ | 2022-08-17 00:00 | BP_diastolic | 111 | mmHg | + + + +---------+ | 2022-08-17 00:00 | BP_systolic | 151 | mmHg | + + + +---------+ | 2022-08-17 00:00 | heart_rate | 109 | /min | + + + +---------+ | 2022-08-17 00:00 | height_metric | 172.72 | cm | + + + +---------+ | 2022-08-17 00:00 | height_standard | 68 | in | + + + +---------+ | 2022-08-17 00:00 | o2_saturation | 98 | % | + + + +---------+ | 2022-08-17 00:00 | respiration_rate | 22 | /min | + + + +---------+ | 2022-08-17 00:00 | temperature_metric | 36.44 | C | | | | | | + + + +---------+ | 2022-08-17 00:00 | | 97.6 | F | | | temperature_standar | | | | | d | | | + + + +---------+ | 2022-08-17 00:00 | weight_metric | 104.33 | kg | + + + +---------+ | 2022-08-17 00:00 | weight_standard | 230 | lb | + + + +---------+ | 2022-08-17 00:00 | weight_standard | 230.01 | lb | + + + +---------+ | 2022-10-09 00:00 | BMI | 35.0 | kg/m2 | + + + +---------+ | 2022-10-09 00:00 | height_metric | 172.72 | cm | + + + +---------+ | 2022-10-09 00:00 | height_standard | 68 | in | + + + +---------+ | 2022-10-09 00:00 | weight_metric | 104.5 | kg | + + + +---------+ | 2022-10-09 00:00 | weight_standard | 230.38 | lb | + + + +---------+ | 2022-10-11 00:00 | BP_diastolic | 112 | mmHg | + + + +---------+ | 2022-10-11 00:00 | BP_systolic | 161 | mmHg | + + + +---------+ | 2022-10-11 00:00 | heart_rate | 96 | /min | + + + +---------+ | 2022-10-11 00:00 | o2_saturation | 96 | % | + + + +---------+ | 2022-10-11 00:00 | respiration_rate | 18 | /min | + + + +---------+ | 2022-10-11 00:00 | temperature_metric | 37.78 | C | | | | | | + + + +---------+ | 2022-10-11 00:00 | | 100 | F | | | temperature_standar | | | | | d | | | + + + +---------+ | 2022-11-05 00:00 | BMI | 37.2 | kg/m2 | + + + +---------+ | 2022-11-05 00:00 | height_metric | 172.72 | cm | + + + +---------+ | 2022-11-05 00:00 | height_standard | 68 | in | + + + +---------+ | 2022-11-05 00:00 | weight_metric | 111 | kg | + + + +---------+ | 2022-11-05 00:00 | weight_standard | 244.71 | lb | + + + +---------+ | 2022-11-07 00:00 | BP_diastolic | 116 | mmHg | + + + +---------+ | 2022-11-07 00:00 | BP_systolic | 166 | mmHg | + + + +---------+ | 2022-11-07 00:00 | heart_rate | 91 | /min | + + + +---------+ | 2022-11-07 00:00 | o2_saturation | 99 | % | + + + +---------+ | 2022-11-07 00:00 | respiration_rate | 18 | /min | + + + +---------+ | 2022-11-07 00:00 | temperature_metric | 37.39 | C | | | | | | + + + +---------+ | 2022-11-07 00:00 | | 99.3 | F | | | temperature_standar | | | | | d | | | + + + +---------+ | 2022-12-09 00:00 | BMI | 37.1 | kg/m2 | + + + +---------+ | 2022-12-09 00:00 | BP_diastolic | 81 | mmHg | + + + +---------+ | 2022-12-09 00:00 | BP_systolic | 134 | mmHg | + + + +---------+ | 2022-12-09 00:00 | heart_rate | 108 | /min | + + + +---------+ | 2022-12-09 00:00 | height_metric | 172.72 | cm | + + + +---------+ | 2022-12-09 00:00 | height_standard | 68 | in | + + + +---------+ | 2022-12-09 00:00 | o2_saturation | 99 | % | + + + +---------+ | 2022-12-09 00:00 | respiration_rate | 15 | /min | + + + +---------+ | 2022-12-09 00:00 | temperature_metric | 36.89 | C | | | | | | + + + +---------+ | 2022-12-09 00:00 | | 98.4 | F | | | temperature_standar | | | | | d | | | + + + +---------+ | 2022-12-09 00:00 | weight_metric | 110.68 | kg | + + + +---------+ | 2022-12-09 00:00 | weight_standard | 244 | lb | + + + +---------+ | 2022-12-09 00:00 | weight_standard | 244.01 | lb | + + + +---------+ | 2022-12-28 00:00 | BMI | 33.5 | kg/m2 | + + + +---------+ | 2022-12-28 00:00 | height_metric | 172.72 | cm | + + + +---------+ | 2022-12-28 00:00 | height_standard | 68 | in | + + + +---------+ | 2022-12-28 00:00 | weight_metric | 99.8 | kg | + + + +---------+ | 2022-12-28 00:00 | weight_standard | 220.02 | lb | + + + +---------+ | 2022-12-29 00:00 | BP_diastolic | 100 | mmHg | + + + +---------+ | 2022-12-29 00:00 | BP_systolic | 149 | mmHg | + + + +---------+ | 2022-12-29 00:00 | heart_rate | 106 | /min | + + + +---------+ | 2022-12-29 00:00 | o2_saturation | 96 | % | + + + +---------+ | 2022-12-29 00:00 | respiration_rate | 22 | /min | + + + +---------+ | 2022-12-29 00:00 | temperature_metric | 37.28 | C | | | | | | + + + +---------+ | 2022-12-29 00:00 | | 99.1 | F | | | temperature_standar | | | | | d | | | + + + +---------+ | 2023-02-08 00:00 | BMI | 35.0 | kg/m2 | + + + +---------+ | 2023-02-08 00:00 | height_metric | 172.72 | cm | + + + +---------+ | 2023-02-08 00:00 | height_standard | 68 | in | + + + +---------+ | 2023-02-08 00:00 | weight_metric | 104.33 | kg | + + + +---------+ | 2023-02-08 00:00 | weight_standard | 230 | lb | + + + +---------+ | 2023-02-08 00:00 | weight_standard | 230.01 | lb | + + + +---------+ | 2023-02-09 00:00 | BP_diastolic | 106 | mmHg | + + + +---------+ | 2023-02-09 00:00 | BP_systolic | 161 | mmHg | + + + +---------+ | 2023-02-09 00:00 | heart_rate | 81 | /min | + + + +---------+ | 2023-02-09 00:00 | o2_saturation | 98 | % | + + + +---------+ | 2023-02-09 00:00 | respiration_rate | 19 | /min | + + + +---------+ | 2023-02-09 00:00 | temperature_metric | 37.06 | C | | | | | | + + + +---------+ | 2023-02-09 00:00 | | 98.7 | F | | | temperature_standar | | | | | d | | | + + + +---------+ | 2023-02-19 00:00 | BMI | 35.0 | kg/m2 | + + + +---------+ | 2023-02-19 00:00 | BP_diastolic | 104 | mmHg | + + + +---------+ | 2023-02-19 00:00 | BP_systolic | 155 | mmHg | + + + +---------+ | 2023-02-19 00:00 | heart_rate | 84 | /min | + + + +---------+ | 2023-02-19 00:00 | height_metric | 172.72 | cm | + + + +---------+ | 2023-02-19 00:00 | height_standard | 68 | in | + + + +---------+ | 2023-02-19 00:00 | o2_saturation | 96 | % | + + + +---------+ | 2023-02-19 00:00 | respiration_rate | 17 | /min | + + + +---------+ | 2023-02-19 00:00 | temperature_metric | 36.72 | C | | | | | | + + + +---------+ | 2023-02-19 00:00 | | 98.1 | F | | | temperature_standar | | | | | d | | | + + + +---------+ | 2023-02-19 00:00 | weight_metric | 104.33 | kg | + + + +---------+ | 2023-02-19 00:00 | weight_standard | 230 | lb | + + + +---------+ | 2023-02-19 00:00 | weight_standard | 230.01 | lb | + + + +---------+"
--- OUTSIDE RECORDS SUMMARY | ~2023-03-20 | XMS | Continuity of Care Document ---
Demographics + + + | Address | [address] | | | [place] [address] | + + + | Preferred Language | Unknown | + + + | Marital Status | Never | + + + | Advent Affiliation | Unknown | + + + | Race | White | + + + | Ethnic Group | Not or | + + + Author + + + | Author | [facility] | + + + | Organization | [facility] | + + + | Address | [address] | | | [place] [address] | + + + | Phone | | + + + Care Team Providers + + + + | Care Special Crimes Investigator Name | Role | Phone | + [...] + | 2022-08-17 00:00 | Tdap | [facility] | + + + + | 2022-08-17 00:00 | Tdap | [facility] | + + + + | 2022-08-17 00:00 | Tdap | [facility] | + + + + | 2022-08-17 00:00 | Tdap | [facility] | + + + + | 2022-08-17 00:00 | Tdap | [facility] | + + + + | 2022-08-17 00:00 | Tdap | [facility] | + + + + Medications + + + + | date | description | facility | + + + + | 2022-08-17 00:00 | LORAZEPAM | [facility] | + + + + | 2022-12-09 00:00 | LORAZEPAM | [facility] | + + + + | 2022-10-11 00:00 | MELATONIN | [facility] | + + + + | 2022-11-07 00:00 | MELATONIN | [facility] | + + + + | 2022-12-09 00:00 | MELATONIN | [facility] | + + + + | 2022-12-29 00:00 | MELATONIN | [facility] | + + + + | 2023-02-09 00:00 | MELATONIN | [facility] | + + + + | 2023-02-19 00:00 | MELATONIN | [facility] | + + + + | 2022-10-11 00:00 | LORATADINE | [facility] | + + + + | 2022-11-07 00:00 | AMOXICILLIN | [facility] | + + + + | 2022-11-07 00:00 | AZITHROMYCIN | [facility] | + + + + | 2022-10-11 00:00 | GABAPENTIN | [facility] | + + + + | 2022-08-17 00:00 | ONDANSETRON | [facility] | + + + + | 2022-08-18 00:00 | LISINOPRIL | [facility] | + + + + | 2022-10-11 00:00 | LISINOPRIL | [facility] | + + + + | 2022-10-11 00:00 | LISINOPRIL | [facility] | + + + + | 2022-10-11 00:00 | LISINOPRIL | [facility] | + + + + | 2022-10-11 00:00 | LISINOPRIL | [facility] | + + + + | 2022-10-11 00:00 | LISINOPRIL | [facility] | + + + + | 2022-11-07 00:00 | LISINOPRIL | [facility] | + + + + | 2022-12-09 00:00 | LISINOPRIL | [facility] | + + + + | 2022-12-29 00:00 | LISINOPRIL | [facility] | + + + + | 2023-02-09 00:00 | LISINOPRIL | [facility] | + + + + | 2023-02-19 00:00 | LISINOPRIL | [facility] | + + + + | 2023-02-09 00:00 | ALBUTEROL SULFATE | [facility] | + + + + | 2023-02-19 00:00 | ALBUTEROL SULFATE | [facility] | + + + + | 2023-02-09 00:00 | CHLORDIAZEPOXIDE HCL | [facility] | + + + + | 2023-02-09 00:00 | CHLORDIAZEPOXIDE HCL | [facility] | + + + + Problems + + + + | date | description | facility | + + + + | 2022-08-17 00:00 | Alcohol withdrawal seizure | [facility] | | | | | + + + + | 2022-08-17 00:00 | Alcohol withdrawal seizure | [facility] | | | | | + + + + | 2022-08-17 00:00 | Alcohol withdrawal seizure | [facility] | | | | | + + + + | 2022-08-17 00:00 | Alcohol withdrawal seizure | [facility] | | | | | + + + + | 2022-08-17 00:00 | Alcohol withdrawal seizure | [facility] | | | | | + + + + | 2022-08-17 00:00 | Alcohol withdrawal seizure | [facility] | | | | | + + [...] | 2022-10-09 00:00 | Alcohol withdrawal | [facility] | | | syndrome | | + + + + | 2022-10-09 00:00 | Alcohol withdrawal | [facility] | | | syndrome | | + + + + | 2022-10-09 00:00 | Alcohol withdrawal | [facility] | | | syndrome | | + + + + | 2022-10-09 00:00 | Alcohol withdrawal | [facility] | | | syndrome | | + + + + | 2022-10-09 00:00 | Alcohol withdrawal | [facility] | | | syndrome | | + [...] + + | 2022-10-09 14:07 | OTHER PRISON (CURRENT) | [facility] | | | DRUG THERAPY | | + + + + | 2022-11-05 00:00 | Alcohol abuse with | [facility] | | | withdrawal | | + + + + | 2022-11-05 00:00 | Alcohol abuse with | [facility] | | | withdrawal | | + + + + | 2022-11-05 00:00 | Alcohol abuse with | [facility] | | | withdrawal | | + + + + | 2022-11-05 00:00 | Alcohol abuse with | [facility] | | | withdrawal | | + + + + | 2022-11-05 00:00 | Aspiration pneumonia | [facility] | + + + + | 2022-11-05 00:00 | Aspiration pneumonia | [facility] | + + + + | 2022-11-05 00:00 | Aspiration pneumonia | [facility] | + + + + | 2022-11-05 00:00 | Aspiration pneumonia | [facility] | + + + + | 2022-11-05 [...] + + | 2022-11-05 22:09 | OTHER PRISON (CURRENT) | [facility] | | | DRUG THERAPY | | + + + + | 2022-12-09 00:00 | Alcohol abuse | [facility] | + + + + | 2022-12-09 00:00 | Alcohol abuse | [facility] | + + + + | 2022-12-09 00:00 | Alcohol abuse | [facility] | + + + + | 2022-12-09 18:27 | ALCOHOL ABUSE, | [facility] | | | UNCOMPLICATED | | + + + + | 2022-12-09 18:27 | OTHER PRISON (CURRENT) | [facility] | | | DRUG [...] + + | 2023-02-08 20:25 | OTHER RACK PUNCHER (CURRENT) | [facility] | | | DRUG TH[facility]APY | | + + + + | 2023-02-09 00:00 | Abrasion of head | [facility] | + + + + | 2023-02-09 00:00 | Abrasion of head | [facility] | + + + + | 2023-02-19 19:13 | Essential (primary) | [facility] | | | hypertension | | + + + + | 2023-02-19 19:13 | UNSPECIFIED CONVULSIONS | [facility] | + + + + | 2023-02-19 19:13 | OTHER RACK PUNCHER (CURRENT) | [facility] | | | DRUG THERAPY | | + + + + Procedures + + + + | date | description | facility | + + + + | 2022-10-09 00:00 | DETOXIFICATION SERVICES | [facility] | | | FOR SUBSTANCE ABUSE | [...] (missing) | | (unavailable | 14:36:07 | [facility] | | | | | [...] 00:00 | Unknown if ever smoked | [facility] | + + + + | 2022-11-07 00:00 | Unknown if ever smoked | [facility] | + + + + | 2022-12-09 00:00 | Unknown if ever smoked | [facility] | + + + + | 2022-12-29 00:00 | Unknown if ever smoked | [facility] | + + + + | 2023-02-09 00:00 | Unknown if ever smoked | [facility] | + + + + | 2023-02-19 00:00 | Unknown if ever smoked | [facility] | + + + + Vital [...]
[~2023-03-20 01:50] MED LIST changes: +CHLORDIAZEPOXID25 MG PO; +VENTOLIN HFA18 GM INH
--- OUTSIDE RECORDS SUMMARY | 2023-03-20 01:53 | XMS ---
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 E[place] VISIT COUNT (12 MO.) [address] [place] [address] TOTAL 8 NOTE: Visits indicate total known visits. ED/UCC VISIT TRACKING (12 MO.) 03/20/2023 01:51 [facility] TYPE: Emergency COMPLAINT: - POSS SEIZURE 02/19/2023 19:13 [facility] TYPE: Emergency COMPLAINT: - SEIZURE DIAGNOSES: - Alcohol abuse with withdrawal, unspecified - Essential (primary) hypertension - Other intermediate manager (current) drug therapy - Unspecified convulsions 02/08/2023 20:[address] [facility] TYPE: Emergency COMPLAINT: - SEIZURE DIAGNOSES: - Abrasion of other part of head, initial encounter - Alcohol use, unspecified with withdrawal, unspecified - Essential (primary) hypertension - Other senior care (current) drug therapy - Unspecified convulsions - Unspecified fall, initial encounter 12/28/2022 14:23 [facility] TYPE: Emergency COMPLAINT: - VOMITING 12/09/2022 18:27 [facility] TYPE: Emergency COMPLAINT: - SEIZURE DIAGNOSES: - Alcohol abuse, uncomplicated - Alcohol use, unspecified with withdrawal, unspecified - Other senior care (current) drug therapy 11/05/2022 18:38 [facility] TYPE: Emergency COMPLAINT: - SEIZURE 10/09/2022 07:10 [facility] [place] TYPE: Emergency COMPLAINT: - VOMITING 08/17/2022 17:03 [facility] [place] TYPE: Emergency COMPLAINT: - SEIZURE DIAGNOSES: - Alcohol abuse with withdrawal, unspecified - Blood alcohol level of less than 20 mg/100 ml - Encounter for immunization - Unspecified convulsions INPATIENT VISIT TRACKING (12 MO.) 12/28/2022 19:04 [facility] TYPE: Critical Care COMPLAINT: - ACUTE ALCOHOL WITHDRAWAL DIAGNOSES: - Alcohol dependence with withdrawal, unspecified - Alcoholic hepatitis without ascites - Alcoholic hepatitis without ascites - Hypomagnesemia - Hypomagnesemia 11/05/2022 22:09 [facility] TYPE: Medical [...] Hypokalemia - Hypomagnesemia - Hypomagnesemia - Other intermediate manager (current) drug therapy - Other intermediate manager (current) drug therapy - Pneumonia, unspecified organism - Pneumonia, unspecified organism - Pneumonitis due to inhalation of food and vomit - Sepsis, unspecified organism - Sepsis, unspecified organism - Unspecified convulsions - Unspecified convulsions 10/09/2022 14:07 [facility] TYPE: Critical [...] - Nausea with vomiting, unspecified - Other intermediate manager (current) drug therapy - Other senior care (current) drug therapy - Tachycardia, unspecified - Tachycardia, unspecified [email or web address]
[2023-03-20] MEDS ORDERED: ATIVAN1 MG PO (04:00)
[2023-03-20 05:14] VITALS: BP 157/117
== END 2023-03-20 05:16 | disposition home or self-care (01) ==
LOC: ED 01:50
DX: F10.239 Alcohol dependence with withdrawal, unspecified (principal); G40.89 Other seizures; F10.229 Alcohol dependence with intoxication, unspecified; Y90.5 Blood alcohol level of 100-119 mg/100 ml; E87.6 Hypokalemia; I10 Essential (primary) hypertension; Z79.899 Other long term (current) drug therapy
CPT/HCPCS: 36415; 80053; 83690; 85025; 96361; 96374; 96375; 96376; 99285-25; A9270; G0480; J2060; J2405; J7030